=== PATIENT | female | born 1930 | race Caucasian/White ===

== ENCOUNTER → 2016-06-29 | Outpatient (CLI) | payer MEDICARE ==
[2016-06-29 13:09] LABS: Blood Urea Nitrogen 17 mg/dL (7-17); Non-African American GFR(MDRD) 51 (>60 ml/min/1.73 sqM)
--- NOTE | 2016-06-29 14:13 | CT ---
EXAMINATION TYPE: CT ChestAbdPelvis w con DATE OF EXAM: 06/29/2016 2:02 PM INDICATION: Patient complains of chest congestion and cough. Follow up study for known non hodgkins lymphoma. COMPARISON: NONE CT DLP: 427.6 mGycm CONTRAST: Performed with Oral Contrast and with IV Contrast, patient injected with 80 mL of Visipaque 320. TECHNIQUE: Axial images at 5 mm thick sections. Reconstructed images in the coronal plane. Delayed images through the kidneys. FINDINGS: CT CHEST: Portion of the thyroid visualized is normal. There is a 0.5 cm nodular density anterior right apex. This may be somewhat more prominent than the c omparison. There is a new area of pneumonitis in the periphery of the right upper lung field. Series 4 image 17. This measures approximately 0.9 cm in AP dimension. Some minimal compressive atelectasis within the dependent right midlung may be present. Moderate peribronchial thickening is within the lo wer lung ybarra. There is pneumonitis within the periphery of the left lower lobe. This is a change f rom prior study. No enlarged mediastinal or hilar adenopathy is evident. The ascending aorta diameter at the level of the main pulmonary artery is 3.1 cm. The main pulmonary artery diameter at the bifurcation is 2.[address] ABDOMEN: Liver: Normal Spleen: Normal Pancreas: Atrophic Adrenal glands: The adrenal glands are relatively normal. There is calcification within the right adr enal gland which could indicate prior hemorrhage. Gallbladder: Gallstones may be present. Kidneys: No masses are evident. No hydronephrosis is present. No cysts are present. Delayed images were obtained through the kidneys, which remain unremarkable. Aorta: Vascular calcification is within the aorta. There is an infrarenal abdominal aortic aneurysm of 4.2 cm. This terminates at the bifurcation. Inferior vena cava: Normal. CT PELVIS: No para-aortic retrocaval inguinal obturator canal or iliac chain adenopathy enlarged by C T criteria is evident. Loops of bowel within the abdomen and pelvis are normal. There are loops of bowel which are incom pletely distended or lack oral contrast limiting their evaluation. Appendix: Normal as visualized. Urinary bladder: Normal. Genitourinary structures: Uterus and adnexa appear unremarkable. Osseous structures: No suspicious lytic or sclerotic lesions. IMPRESSIONS: 1. No suspicious changes for recurrent,. 2. There are some mild changes within the lung ybarra. Follow up CT chest 6 months is recommended. 3. Abdominal aortic aneurysm currently measuring 4.2 cm maximum AP dimension
== END | disposition home or self-care (01) ==
LOC: RADCTMAIN 12:19
PROVIDERS: ATTEND Internal Medicine Hematology & Oncology
DX: C85.90 Non-Hodgkin lymphoma, unspecified, unspecified site (principal); I71.4 Abdominal aortic aneurysm, without rupture
CPT/HCPCS: 82565; 84520; 71260; 74177; 36415; Q9967

== ENCOUNTER → 2016-10-31 | Outpatient (CLI) | payer MEDICARE | END | disposition home or self-care (01) | LOC: RADCTMAIN 11:15 | PROVIDERS: ATTEND Internal Medicine Hematology & Oncology | DX: Z01.818 Encounter for other preprocedural examination (principal); C83.38 Diffuse large B-cell lymphoma, lymph nodes of multiple sites | CPT/HCPCS: 82565; 84520 ==

== ENCOUNTER → 2016-11-08 | Outpatient (CLI) | payer MEDICARE ==
--- NOTE | 2016-11-08 15:48 | CT ---
EXAMINATION TYPE: CT ChestAbdPelvis w con DATE OF EXAM: 11/08/2016 COMPARISON: Previous study dated 06/29/2016 HISTORY: Follow up for lymphoma. CT DLP: 1064 mGycm Automated exposure control for dose reduction was used. TECHNIQUE: Helical acquisition through the abdomen and pelvis was obtained without oral contrast but following the intravenous administration of 75 mL of Omnipaque 350. The data was formatted in the ax ial, coronal and sagittal projections. FINDINGS: There are emphysematous changes throughout the lungs. There is interstitial change present. This was also present previously. There is no significant axillary, internal mammary, mediastinal or hilar adenopathy. There is no pleural or pericardial fluid. The heart is mildly enlarged. There is a pacemaker in place . There is coronary artery and other vascular calcifications. There is thickening of the distal esophagus. Within the abdomen, there are gallstones within the gallbladder. The liver and spleen appear normal. There is calcification within the right adrenal gland. This likely relates to previous adrenal hemorr marilee. Both kidneys demonstrate function and appear morphologically normal. The pancreas is atrophic. There is an infrarenal abdominal aortic aneurysm. Previously this measured 4.2 cm. Today it measures 4.8 cm. There is eccentric thrombus. There is no significant retroperitoneal, iliac or inguinal adenopathy. The bladder is distended. The uterus is unremarkable. The ovaries are not visualized with certainty. There is no significant diverticular change and there is no radiographic evidence of diverticulitis. The appendix is normal. Small bowel loops are unremarkable. There is no free fluid and no free air. There is a degenerative grade 1 spondylolisthesis of L4 on L5. There is a wedge compression deformity of T9 and also T6. These were present previously. No bony destructive lesion is seen. IMPRESSION: 1. NO EVIDENCE OF RECURRENT LYMPHOMA. 2. DIFFUSE EMPHYSEMATOUS CHANGES WITHIN THE LUNGS. 3. THICKENING OF THE DISTAL ESOPHAGUS. 4. MILD CARDIOMEGALY. 5. CALCIFICATION IN THE RIGHT ADRENAL GLAND LIKELY RELATES TO OLD HEMORRHAGE. 6. INFRARENAL ABDOMINAL AORTIC ANEURYSM WHICH IS NOW ENLARGED FROM 4.2 CM TO 4.8 CM. 7. DEGENERATIVE CHANGES WELL STABLE WEDGE COMPRESSION FRACTURES WITHIN THE SPINE.
== END | disposition home or self-care (01) ==
LOC: RADCTMAIN 13:51
PROVIDERS: ATTEND Internal Medicine Hematology & Oncology
DX: C83.38 Diffuse large B-cell lymphoma, lymph nodes of multiple sites (principal); J43.9 Emphysema, unspecified; I51.7 Cardiomegaly; I71.4 Abdominal aortic aneurysm, without rupture; K22.8 Other specified diseases of esophagus; E27.9 Disorder of adrenal gland, unspecified
CPT/HCPCS: 82565; 84520; 71260; 74177; 36415; Q9967

== ENCOUNTER 2016-11-18 14:46 | Emergency (ER) | payer MEDICARE ==
[2016-11-18 14:54] VITALS: RESP 17
--- NOTE | 2016-11-18 15:13 | ED ---
Fall HPI - General Chief Complaint: Fall Stated Complaint: RT WRIST INJURY FROM FALL Time Seen by Provider: 11/18/16 14:58 Source: patient Mode of arrival: EMS - History of Present Illness Initial Comments: Patient is a right-handed 86-year-old female presenting to the emergency department via EMS with chief complaint of fall and right wrist injury. Onset of injury at 2:30 PM this afternoon. Patient states she was at home when the phone rang and she went to stand up when she think her right leg might have given out and she fell on the floor bracing herself with her right hand. Patient denies loss of consciousness. Patient is currently complaining of right wrist pain rated 5 out of 10, described as sharp, exacerbated with movement, relieved with rest. Patient denies previous trauma or surgery to right upper extremity. Patient denies numbness or tingling. Patient denies any other symptoms. MD Complaint: fall Fall From: standing When Fall Occurred: just prior to arrival Fall Witnessed: no Place Fall Occurred: home Loss of Consciousness: none Prolonged Down Time?: no Symptoms Prior to Fall: none Location - Extremities: Right: Forearm (Right wrist) Quality: other (Just hurts) Context: tripped/slipped Associated Symptoms: denies - Related Data Home Medications Medication Instructions Recorded Confirmed Digoxin [Lanoxin] 125 mcg PO DAILY 10/08/14 11/18/16 Levothyroxine Sodium [Synthroid] 25 mcg PO DAILY 10/08/14 11/18/16 [place]-3 Acid Ethyl Esters [Lovaza] 1 gm PO HS 10/08/14 11/18/16 Simvastatin [Zocor] 20 mg PO HS 10/08/14 11/18/16 Multivitamins, Thera [Multivitamin 1 tab PO DAILY 12/31/14 11/18/16 (formulary)] Warfarin [Coumadin] 2.5 mg PO TUTHSA 01/19/15 11/18/16 Furosemide [Lasix] 10 mg PO Q48H 11/18/16 11/18/16 Metoprolol Tartrate [Lopressor] 12.5 mg PO BID 11/18/16 11/18/16 Potassium Chloride ER [K-Dur 10] 10 meq PO DAILY 11/18/16 11/18/16 Warfarin [Coumadin] 5 mg PO SUMOWEFR 11/18/16 11/18/16 predniSONE 5 mg PO Q48H 11/18/16 11/18/16 sitaGLIPtin [Januvia] 50 mg PO DAILY 11/18/16 11/18/16 Allergies Allergy/AdvReac Type Severity Reaction Status Date / Time No Known Allergies Allergy Verified 11/18/16 15:57 Review of Systems ROS Statement: Those systems with pertinent positive or pertinent negative responses have been documented in the HPI. ROS Other: All systems not noted in ROS Statement are negative. Past Medical History Past Medical History: Atrial Fibrillation, Cancer, COPD, CVA/TIA, Diabetes Mellitus, Hyperlipidemia, Hypertension, Thyroid Disorder Additional Past Medical History / Comment(s): non hodgkins lymphoma-family told it is aggressive type is to start chemo 11/18/[address] Viramontes. Patient had lymph node biopsy at [facility] 10/27/14 outpatient, went home, had stroke 10/28/14, had TPA at [facility], then a mid cerebral thrombectomy 10/28/14 at [facility], went home 2014 HAS [facility]NA/PT FOR AWHILE.. 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, cyst (polynidal) removed Past Anesthesia/Blood Transfusion Reactions: No Reported Reaction Type of Cardiac Device: Permanent Pacemaker Device Placement Date:: 01/2010 Past Psychological History: Anxiety Smoking Status: Former smoker Past Alcohol Use History: Rare Past Drug Use History: None Reported - Past Family History Father Family Medical History: Cancer Additional Family Medical History / Comment(s): bowel Mother Family Medical History: Myocardial Infarction ([place]) Additional Family Medical History / Comment(s): at the age of 54 of a heart attack General Exam Limitations: no limitations General appearance: alert, in no apparent distress Head exam: Present: atraumatic, normocephalic, normal inspection Eye exam: Present: normal appearance. Absent: PERRL, scleral icterus, conjunctival injection, periorbital swelling, periorbital tenderness ENT exam: Present: normal exam, mucous membranes moist, normal external ear exam Neck exam: Present: normal inspection, full ROM. Absent: tenderness, lymphadenopathy Respiratory exam: Present: normal lung sounds bilaterally. Absent: respiratory distress, wheezes, rales, rhonchi, stridor Cardiovascular Exam: Present: regular rate, normal rhythm, normal heart sounds. Absent: systolic murmur GI/Abdominal exam: Present: soft, normal bowel sounds. Absent: tenderness Right Shoulder Exam: Present: normal inspection, full ROM. Absent: tenderness, swelling Upper Arm exam: Present: normal inspection, full ROM. Absent: tenderness, swelling Elbow exam: Present: normal inspection, full ROM. Absent: tenderness, swelling Forearm Wrist exam: Present: tenderness (Tenderness and swelling to radial aspect of right anterior wrist.), swelling Hand Wrist exam: Present: normal inspection, full ROM. Absent: tenderness, swelling Neuro motor exam: Present: wrist extension intact, thumb opposition intact, thumb IP flexion intact, thumb adduction intact, fingers 2-5 abduction intact Neurosensory exam: Present: radial nerve intact, ulnar nerve intact, median nerve intact Vascular: Present: normal capillary refill, radial pulse, brachial pulse, ulnar pulse. Absent: vascular compromise Back exam: Present: normal inspection, full ROM. Absent: tenderness, CVA tenderness (R), CVA tenderness (L), paraspinal tenderness, vertebral tenderness Neurological exam: Present: alert, other (No focal deficits noted) Psychiatric exam: Present: normal affect, normal mood Skin exam: Present: warm, dry, intact, normal color Course Vital Signs 11/18/16 11/18/16 14:49 17:05 Temperature 97.7 F 97.4 F L Pulse Rate 91 87 Respiratory 17 17 Rate Blood Pressure 181/89 157/89 O2 Sat by Pulse 95 Oximetry Medical Decision Making - Medical Decision Making Comminuted fracture the distal radius metaphysis with some posterior angulation. No significant displacement. Impacted intra-articular fracture with displacement distal radius. Chip fracture ulnar styloid. Patient placed in a sugar tong splint. Patient instructed to follow-up with orthopedic service. Daughter at bedside and in agreement. Discharge instructions and return parameters reviewed. - Radiology Data Radiology results: report reviewed X-ray right wrist: Comminuted fracture the distal radius metaphysis with some posterior angulation. No significant displacement. X-ray right forearm: Impacted intra-articular fracture with displacement distal radius. Chip fracture ulnar styloid. Disposition Clinical Impression: Wrist fracture, closed Disposition: HOME SELF-CARE Condition: Good Instructions: Wrist Fracture in Adults (ED), Fall Prevention for Older Adults ( ED), Splint Care (ED) Additional Instructions: Avoid activity that causes pain Ice 20 minutes 4 times a day usually for 2-3 days Davian wrap to provide support and limit swelling Keep elevated as much as possible 24-48 hours. Continue tylenol for pain. Return to the emergency department with symptoms of increased swelling, pain, numbness, tingling, or hand feeling cold to touch. Follow-up with primary service and orthopedic service as directed. Referrals: Martin Richards MD [Primary Care Provider] - 1-2 days [facility] [Provider Group] - 1-2 days Time of Disposition: 16:46
--- NOTE | 2016-11-18 15:41 | XR ---
EXAMINATION TYPE: XR forearm RT DATE OF EXAM: 11/18/2016 COMPARISON: NONE HISTORY: Pain Two views of the forearm demonstrate pain comminuted intra-articular fracture distal radius with disp lacement. Ulnar styloid chip fracture also suspected. Mild diffuse osteopenia. There is soft tissue edema. IMPRESSION: 1. Impacted intra-articular fracture with displacement distal radius 2. Chip fracture ulnar styloid
--- NOTE | 2016-11-18 15:42 | XR ---
EXAMINATION TYPE: XR wrist complete RT , 3 VIEWS DATE OF EXAM ORDERED: 11/18/2016 HISTORY: Pain. COMPARISON: None. FINDINGS: There is a comminuted fracture the distal radius with approximately 30 degrees of posterio r angulation. There is no significant displacement. IMPRESSION: COMMINUTED FRACTURE THE DISTAL RADIAL METAPHYSIS WITH SOME POSTERIOR ANGULATION. CODE A: INITIAL ASSESSMENT FOR CLOSED FRACTURE.
[2016-11-18 17:06] VITALS: BP 157/89; PULSE 87; TEMP 97.4
== END 2016-11-18 17:05 | disposition home or self-care (01) ==
LOC: EC 14:46
DX: S52.591A Other fractures of lower end of right radius, initial encounter for closed fracture (principal); S52.611A Displaced fracture of right ulna styloid process, initial encounter for closed fracture; E78.5 Hyperlipidemia, unspecified; I10 Essential (primary) hypertension; I48.91 Unspecified atrial fibrillation; E11.9 Type 2 diabetes mellitus without complications; E07.9 Disorder of thyroid, unspecified; Z87.891 Personal history of nicotine dependence; Z79.01 Long term (current) use of anticoagulants; Z79.52 Long term (current) use of systemic steroids; Z79.84 Long term (current) use of oral hypoglycemic drugs; Z79.899 Other long term (current) drug therapy; Z86.73 Personal history of transient ischemic attack (TIA), and cerebral infarction without residual deficits; W18.09XA Striking against other object with subsequent fall, initial encounter; Y92.009 Unspecified place in unspecified non-institutional (private) residence as the place of occurrence of the external cause; Y93.89 Activity, other specified
CPT/HCPCS: 29105; 99283

== ENCOUNTER 2016-12-05 06:50 | Day surgery (SDC) | payer MEDICARE ==
[2016-12-01 12:20] VITALS: BMI 21.6
[~2016-12-05 06:50] MED LIST: LACTATED RINGERS 1,000 ML IV SCH; LIDOCAINE 1% 20 ML VIAL (10MG/ML) FOR IV START INTRADERMA PRN
[2016-12-05 07:16] VITALS: TEMP 97
[2016-12-05 07:42] LABS: Glucose,Whole Blood 135 mg/dL (75-99)
[2016-12-05] MEDS ORDERED: PROPOFOL 10 MG/ML 20 ML VIAL IV ONE (07:53)
--- NOTE | 2016-12-05 08:08 | P.GSHP ---
History of Present Illness H&P Date: 12/05/16 Chief Complaint: GERD Is a 78-year-old female referred Dr. Martin Anderson. Patient rents today for EGD. She's had issues with GERD. Sent CT scan shows evidence of esophageal thickening. 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 , FRACTURE OF RIGHT WRIST , ANEMIA History of Any Multi-Drug Resistant Organisms: None Reported Past Surgical History: Pacemaker Additional Past Surgical History / Comment(s): partial thyroidectomy, rt axillary biopsy-surgical site at right axillae cataract, cyst (polynidal) removed, mid cerebrral thrombectomy- at [facility] Past Anesthesia/Blood Transfusion Reactions: No Reported Reaction Type of Cardiac Device: Permanent Pacemaker Device Placement Date:: 01/2010 Smoking Status: Former smoker - Past Family History Father Family Medical History: Cancer Additional Family Medical History / Comment(s): bowel Mother Family Medical History: Myocardial Infarction ([place]) Additional Family Medical History / Comment(s): at the age of 54 of a heart attack Medications and Allergies Home Medications Medication Instructions Recorded Confirmed Type Digoxin [Lanoxin] 125 mcg PO DAILY 10/08/14 12/05/16 History Levothyroxine Sodium [Synthroid] 25 mcg PO DAILY 10/08/14 12/05/16 History [place]-3 Acid Ethyl Esters [Lovaza] 1 gm PO HS 10/08/14 12/05/16 History Simvastatin [Zocor] 20 mg PO HS 10/08/14 12/05/16 History Multivitamins, Thera [Multivitamin 1 tab PO DAILY 12/31/14 12/05/16 History (formulary)] Warfarin [Coumadin] 2.5 mg PO TUTHSA 01/19/15 12/05/16 History Furosemide [Lasix] 10 mg PO Q48H 11/18/16 12/05/16 History Metoprolol Tartrate [Lopressor] 12.5 mg PO BID 11/18/16 12/05/16 History Potassium Chloride ER [K-Dur 10] 10 meq PO DAILY 11/18/16 12/05/16 History Warfarin [Coumadin] 5 mg PO SUMOWEFR 11/18/16 12/05/16 History predniSONE 5 mg PO Q48H 11/18/16 12/05/16 History sitaGLIPtin [Januvia] 50 mg PO DAILY 11/18/16 12/05/16 History Allergies Allergy/AdvReac Type Severity Reaction Status Date / Time No Known Allergies Allergy Verified 11/18/16 15:57 Surgical - Exam Vital Signs Temp Pulse Resp BP Pulse Ox 97.0 F L 81 14 140/78 97 12/05/16 07:15 12/05/16 07:15 12/05/16 07:15 12/05/16 07:15 12/05/16 07:15 - General well developed, no distress - Eyes PERRL - ENT normal pinna - Neck no masses - Respiratory normal expansion - Cardiovascular Rhythm: regular - Abdomen Abdomen: soft, non tender Results - Labs Abnormal Lab Results - Last 24 Hours (Table) 12/05/16 Range/Units 07:39 POC Glucose (mg/dL) 135 H (75-99) mg/dL Assessment and Plan Plan: GERD. We'll perform EGD.
--- NOTE | 2016-12-05 08:14 | P.OP ---
Date of Procedure: 12/05/16 Preoperative Diagnosis: GERD Postoperative Diagnosis: Antral gastritis Moderate size hiatal hernia Esophagitis No evidence of esophageal tumor Procedure(s) Performed: EGD Implants: Anesthesia: MAC Surgeon: Clay Rivera Pathology: other (Antrum, esophagus) Condition: stable Disposition: PACU Indications for Procedure: Operative Findings: Description of Procedure: Patient's placed on the endoscopy table in the lateral position. She received IV sedation. The gastroscope placed oropharynx passed in the esophagus and stomach. Scope was then placed through the pylorus. The first and second portion of the duodenum appeared normal. Scope was then brought back the antrum and this appeared mildly inflamed a biopsies performed. Scope was unretroflexed and remainder stomach appeared normal. The GE junction was at 38 cm. There was a moderate size hiatal hernia. The distal esophagus appeared inflamed and a biopsies performed. The proximal esophagus appeared normal. The scope was withdrawn for patient.
[2016-12-05 08:23] VITALS: RESP 16
[2016-12-05 08:38] LABS: Glucose,Whole Blood 129 mg/dL (75-99)
[2016-12-05 08:40] VITALS: BP 132/71; PULSE 72
[2016-12-05 08:59] LABS: INR 1.7 (<1.2); Prothrombin Time 16.8 sec (9.0-12.0)
== END 2016-12-05 09:29 | disposition home or self-care (01) ==
LOC: ORWHC2ENDO 06:50
PROVIDERS: ATTEND Surgery
DX: K21.0 Gastro-esophageal reflux disease with esophagitis (principal); K29.50 Unspecified chronic gastritis without bleeding; K44.9 Diaphragmatic hernia without obstruction or gangrene; C83.38 Diffuse large B-cell lymphoma, lymph nodes of multiple sites; E11.9 Type 2 diabetes mellitus without complications; I10 Essential (primary) hypertension; E78.2 Mixed hyperlipidemia; I48.91 Unspecified atrial fibrillation; I49.9 Cardiac arrhythmia, unspecified; J44.9 Chronic obstructive pulmonary disease, unspecified; M19.90 Unspecified osteoarthritis, unspecified site; E07.9 Disorder of thyroid, unspecified; Z95.0 Presence of cardiac pacemaker; Z86.73 Personal history of transient ischemic attack (TIA), and cerebral infarction without residual deficits; Z79.01 Long term (current) use of anticoagulants; Z79.52 Long term (current) use of systemic steroids; Z79.899 Other long term (current) drug therapy; Z79.84 Long term (current) use of oral hypoglycemic drugs; Z87.891 Personal history of nicotine dependence
CPT/HCPCS: 88305; 85610; 88342; 43239; J2704

== ENCOUNTER 2016-12-23 14:57 | Emergency (ER) | payer MEDICARE ==
[2016-12-23] MEDS ORDERED: SODIUM CHLORIDE 0.9% 500 ML IV ONE (15:10)
[2016-12-23] MEDS ORDERED: ASPIRIN 81 MG CHEW PO STA (15:24)
--- NOTE | 2016-12-23 15:39 | ED ---
Back Pain HPI - General Chief Complaint: Back Pain/Injury Stated Complaint: Back Pain Source: patient, family, EMS Limitations: no limitations - History of Present Illness Initial Comments: Patient is an 86-year-old female with a history of hypertension, and non-Hodgkin 's lymphoma who presents with a chief complaint of back pain. Patient states the pain started abruptly this morning. She says that it is her entire back. She cannot characterize her pain currently. Patient cannot identify any aggravating or alleviating factors. Timing has been constant. Patient recently had an EGD for a lower esophageal stricture on Monday. On initial evaluation patient does not appear to be in any distress. Vital signs are stable. MD Complaint: back pain Similar Symptoms Previously: No Place: home Radiation: abdomen Quality: other (Patient is unable to specify) Consistency: constant Improves With: none Worsens With: none Context: other (At rest) Associated Symptoms: abdominal pain - Related Data Home Medications Medication Instructions Recorded Confirmed Digoxin [Lanoxin] 125 mcg PO DAILY 10/08/14 12/23/16 Levothyroxine Sodium [Synthroid] 25 mcg PO DAILY 10/08/14 12/23/16 [place]-3 Acid Ethyl Esters [Lovaza] 1 gm PO HS 10/08/14 12/23/16 Simvastatin [Zocor] 20 mg PO HS 10/08/14 12/23/16 Multivitamins, Thera [Multivitamin 1 tab PO DAILY 12/31/14 12/23/16 (formulary)] Warfarin [Coumadin] 2.5 mg PO TUTHSA@1800 01/19/15 12/23/16 Furosemide [Lasix] 10 mg PO DAILY 11/18/16 12/23/16 Metoprolol Tartrate [Lopressor] 12.5 mg PO BID 11/18/16 12/23/16 Potassium Chloride ER [K-Dur 10] 10 meq PO DAILY 11/18/16 12/23/16 Warfarin [Coumadin] 5 mg PO SUMOWEFR@1800 11/18/16 12/23/16 predniSONE 5 mg PO Q48H 11/18/16 12/23/16 sitaGLIPtin [Januvia] 50 mg PO DAILY 11/18/16 12/23/16 Omeprazole 20 mg PO DAILY 12/23/16 12/23/16 Previous Rx's Medication Instructions Recorded Naproxen [EC-Naprosyn] 375 mg PO TID #20 tab 12/23/16 Nitrofurantoin Monohyd/M-Cryst 100 mg PO Q12HR #14 cap 12/23/16 [Macrobid] Allergies Allergy/AdvReac Type Severity Reaction Status Date / Time No Known Allergies Allergy Verified 12/23/16 15:34 Review of Systems ROS Statement: Those systems with pertinent positive or pertinent negative responses have been documented in the HPI. ROS Other: All systems not noted in ROS Statement are negative. Constitutional: Denies: fever, chills Eyes: Denies: vision change ENT: Denies: ear pain, throat pain Respiratory: Denies: cough, dyspnea Cardiovascular: Denies: chest pain, palpitations Endocrine: Denies: fatigue Gastrointestinal: Reports: abdominal pain. Denies: nausea, vomiting Genitourinary: Denies: dysuria Skin: Denies: rash Neurological: Denies: headache 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 , FRACTURE OF RIGHT WRIST , ANEMIA History of Any Multi-Drug Resistant Organisms: None Reported Past Surgical History: Pacemaker Additional Past Surgical History / Comment(s): partial thyroidectomy, rt axillary biopsy-surgical site at right axillae cataract, cyst (polynidal) removed, mid cerebrral thrombectomy- at [facility] Past Anesthesia/Blood Transfusion Reactions: No Reported Reaction Type of Cardiac Device: Permanent Pacemaker Device Placement Date:: 01/2010 Past Psychological History: Anxiety Smoking Status: Former smoker - Past Family History Father Family Medical History: Cancer Additional Family Medical History / Comment(s): bowel Mother Family Medical History: Myocardial Infarction ([place]) Additional Family Medical History / Comment(s): at the age of 54 of a heart attack General Exam Limitations: no limitations General appearance: alert, in no apparent distress Head exam: Present: atraumatic, normocephalic Eye exam: Present: normal appearance, PERRL ENT exam: Present: normal exam, normal oropharynx, mucous membranes moist Neck exam: Present: normal inspection. Absent: tenderness Respiratory exam: Present: normal lung sounds bilaterally. Absent: respiratory distress Cardiovascular Exam: Present: regular rate, normal rhythm, normal heart sounds GI/Abdominal exam: Present: soft, tenderness (Patient has tenderness in the lower abdomen specifically suprapubically) Rectal exam: Present: deferred Extremities exam: Present: pedal edema Back exam: Present: normal inspection. Absent: tenderness, CVA tenderness (R) Neurological exam: Present: alert, oriented X3. Absent: altered Psychiatric exam: Present: normal affect, normal mood Skin exam: Present: warm, dry, intact Course Vital Signs 12/23/16 12/23/16 12/23/16 15:16 18:04 19:20 Temperature 97.7 F 98.6 F 97.9 F Pulse Rate 76 64 62 Respiratory 16 18 18 Rate Blood Pressure 141/86 147/79 153/71 O2 Sat by Pulse 98 97 98 Oximetry Medical Decision Making - Medical Decision Making 3:33 PM Patient presents with a chief complaint of back pain. History and physical exam is most consistent with muscular skeletal back pain, gallbladder, or pancreatitis pathology. An EKG was performed at [address] depressions in 23 and aVF. There is questionable ST elevation in aVR. Comparison EKG is from 2015, and is different. I spoke with Dr. Chi, EKGs will be faxed to him , currently pending call back with cardiology interpretation. 4:00 PM I spoke with Dr. Chi again regarding patient's EKG. This time he is not concerned for STEMI. He states that this finding may be due to patient's digoxin. He states there is no need for a stress test or further workup if troponins are negative. Lab evaluation of this patient shows evidence of urinary tract infection, culture was sent. Labs otherwise show an elevated alkaline phosphatase at 131. This is consistent with previous values however is in CAT scan shows a new finding of gallstones. We'll send patient for ultrasound of the abdomen for evaluation of the gallbladder and liver. 6:10 PM Ultrasound of the liver and gallbladder show no evidence of stones, ordered I' ll duct dilatation. Second troponin is negative. This time, patient is stable for discharge and follow-up with primary care. All questions were answered. Patient was given instructions on signs and symptoms that should prompt return visit to the emergency department. - Lab Data Result diagrams: 12/23/16 15:40 12/23/16 15:40 Lab Results 12/23/16 12/23/16 12/23/16 Range/Units 15:40 15:40 15:40 WBC 7.7 (3.8-10.6) k/uL RBC 3.35 L (3.80-5.40) m/uL Hgb 11.6 (11.4-16.0) gm/dL Hct 34.1 (34.0-46.0) % MCV 101.9 H (80.0-100.0) fL MCH 34.5 (25.0-35.0) pg MCHC 33.9 (31.0-37.0) g/dL RDW 15.0 (11.5-15.5) % Plt Count 202 (150-450) k/uL Neutrophils % 58 % Lymphocytes % 27 % Monocytes % 7 % Eosinophils % 3 % Basophils % 1 % Neutrophils # 4.4 (1.3-7.7) k/uL Lymphocytes # 2.1 (1.0-4.8) k/uL Monocytes # 0.6 (0-1.0) k/uL Eosinophils # 0.3 (0-0.7) k/uL Basophils # 0.0 (0-0.2) k/uL Macrocytosis Slight Sodium 144 (137-145) mmol/L Potassium 4.7 (3.5-5.1) mmol/L Chloride 108 H (98-107) mmol/L Carbon Dioxide 24 (22-30) mmol/L Anion Gap 12 mmol/L BUN 15 (7-17) mg/dL Creatinine 1.00 (0.52-1.04) mg/dL Est GFR (MDRD) Af Amer >60 (>60 ml/min/1.73 sqM) Est GFR (MDRD) Non-Af 52 (>60 ml/min/1.73 sqM) Glucose 119 H (74-99) mg/dL Calcium 9.0 (8.4-10.2) mg/dL Total Bilirubin 0.6 (0.2-1.3) mg/dL AST 20 (14-36) U/L ALT 29 (9-52) U/L Alkaline Phosphatase 131 H (38-126) U/L Troponin I <0.012 (0.000-0.034) ng/mL Total Protein 6.8 (6.3-8.2) g/dL Albumin 4.0 (3.5-5.0) g/dL Lipase 181 (23-300) U/L Urine Color Urine Appearance (Clear) Urine pH (5.0-8.0) Ur Specific [place] (1.001-1.035) Urine Protein (Negative) Urine Glucose (UA) (Negative) Urine Ketones (Negative) Urine Blood (Negative) Urine Nitrite (Negative) Urine Bilirubin (Negative) Urine Urobilinogen (<2.0) mg/dL Ur Leukocyte Esterase (Negative) Urine RBC (0-5) /hpf Urine WBC (0-5) /hpf Ur Squamous Epith Cells (0-4) /hpf Urine Bacteria (None) /hpf Urine Mucus (None) /hpf 12/23/16 12/23/16 Range/Units 15:50 19:12 WBC (3.8-10.6) k/uL RBC (3.80-5.40) m/uL Hgb (11.4-16.0) gm/dL Hct (34.0-46.0) % MCV (80.0-100.0) fL MCH (25.0-35.0) pg MCHC (31.0-37.0) g/dL RDW (11.5-15.5) % Plt Count (150-450) k/uL Neutrophils % % Lymphocytes % % Monocytes % % Eosinophils % % Basophils % % Neutrophils # (1.3-7.7) k/uL Lymphocytes # (1.0-4.8) k/uL Monocytes # (0-1.0) k/uL Eosinophils # (0-0.7) k/uL Basophils # (0-0.2) k/uL Macrocytosis Sodium (137-145) mmol/L Potassium (3.5-5.1) mmol/L Chloride (98-107) mmol/L Carbon Dioxide (22-30) mmol/L Anion Gap mmol/L BUN (7-17) mg/dL Creatinine (0.52-1.04) mg/dL Est GFR (MDRD) Af Amer (>60 ml/min/1.73 sqM) Est GFR (MDRD) Non-Af (>60 ml/min/1.73 sqM) Glucose (74-99) mg/dL Calcium (8.4-10.2) mg/dL Total Bilirubin (0.2-1.3) mg/dL AST (14-36) U/L ALT (9-52) U/L Alkaline Phosphatase (38-126) U/L Troponin I <0.012 (0.000-0.034) ng/mL Total Protein (6.3-8.2) g/dL Albumin (3.5-5.0) g/dL Lipase (23-300) U/L Urine Color Light Yellow Urine Appearance Clear (Clear) Urine pH 7.0 (5.0-8.0) Ur Specific [place] 1.007 (1.001-1.035) Urine Protein Negative (Negative) Urine Glucose (UA) Negative (Negative) Urine Ketones Negative (Negative) Urine Blood Negative (Negative) Urine Nitrite Negative (Negative) Urine Bilirubin Negative (Negative) Urine Urobilinogen <2.0 (<2.0) mg/dL Ur Leukocyte Esterase Moderate H (Negative) Urine RBC <1 (0-5) /hpf Urine WBC 9 H (0-5) /hpf Ur Squamous Epith Cells 1 (0-4) /hpf Urine Bacteria Rare H (None) /hpf Urine Mucus Rare H (None) /hpf Disposition Clinical Impression: Back pain Disposition: HOME SELF-CARE Condition: Good Instructions: Back Pain (ED) Prescriptions: Naproxen [EC-Naprosyn] 375 mg PO TID #20 tab Nitrofurantoin Monohyd/M-Cryst [Macrobid] 100 mg PO Q12HR #14 cap Referrals: Martin Richards MD [Primary Care Provider] - 1-2 days
[2016-12-23 15:50] LABS: Basophils % (A) 1 %; CH 33.6; CHCM 33.1; Eosinophils # (A) 0.3 k/uL (0-0.7); Eosinophils % (A) 3 %; HCT 34.1 % (34.0-46.0); HDW 3.06; HGB 11.6 gm/dL (11.4-16.0); Luc # (Auto) 0.32; Luc % (Auto) 4; Lymphocytes # (A) 2.1 k/uL (1.0-4.8); Lymphocytes % (A) 27 %; MCH 34.5 pg (25.0-35.0); MCHC 33.9 g/dL (31.0-37.0); MCV 101.9 fL (80.0-100.0); Macrocytosis Slight; Mean Platelet Volume 7.6; Monocytes # (A) 0.6 k/uL (0-1.0); Monocytes % (A) 7 %; Neutrophils # (A) 4.4 k/uL (1.3-7.7); Neutrophils % (A) 58 %; RBC 3.35 m/uL (3.80-5.40); WBC 7.7 k/uL (3.8-10.6); WBC (Perox) 7.89
[2016-12-23 15:58] LABS: ALT 29 U/L (9-52); AST 20 U/L (14-36); Alkaline Phosphatase 131 U/L (38-126); Anion Gap 12 mmol/L; Blood Urea Nitrogen 15 mg/dL (7-17); Carbon Dioxide 24 mmol/L (22-30); Chloride 108 mmol/L (98-107); Glucose 119 mg/dL (74-99); Non-African American GFR(MDRD) 52 (>60 ml/min/1.73 sqM); Potassium 4.7 mmol/L (3.5-5.1); Sodium 144 mmol/L (137-145); Total Bilirubin 0.6 mg/dL (0.2-1.3); Total Protein 6.8 g/dL (6.3-8.2)
[2016-12-23 16:00] LABS: Appearance,Urine Clear (Clear); Bacteria,Urine Rare /hpf; Bilirubin,Urine Negative (Negative); Glucose,Urine (UA) Negative (Negative); Ketones,Urine Negative (Negative); Leukocyte Esterase,Urine Moderate (Negative); Mucus,Urine Rare /hpf; Nitrite,Urine Negative (Negative); Particle Count 833; Protein,Urine Negative (Negative); RBC,Urine <1 /hpf (0-5); Specific Gravity,Urine 1.007 (1.001-1.035); Squamous Epithelial Cell,Urine 1 /hpf (0-4); UA Billing (MACRO vs. MICRO) MICRO; Urobilinogen,Urine <2.0 mg/dL (<2.0); WBC,Urine 9 /hpf (0-5)
--- NOTE | 2016-12-23 17:31 | XR ---
EXAMINATION TYPE: XR thoracic spine 2V DATE OF EXAM: 12/23/2016 COMPARISON: NONE HISTORY: Back pain TECHNIQUE: 4 views FINDINGS: There is osteopenia. There is some thoracic kyphotic curvature with 50% anterior wedging of T6 vertebra. This is probably old and not changed compared to chest x-ray on 01/22/2015. There is no paraspinal mass. Posterior elements appear intact. IMPRESSION: T6 compression fractures probably old. Osteopenia. There is also slight wedging of T8 and T9 that is unchanged.
--- NOTE | 2016-12-23 17:32 | XR ---
EXAMINATION TYPE: XR lumbar spine 2 or 3V DATE OF EXAM: 12/23/2016 COMPARISON: NONE HISTORY: Back pain TECHNIQUE: 3 views FINDINGS: There is 5 mm anterior subluxation of L4 in relation L5. There is osteopenia. Posterior yevgeniy ments are intact. Abdominal aorta is atheromatous. Sacroiliac joints are intact. Abdominal aortic ane urysm is noted. IMPRESSION: Degenerative first degree L4-5 spondylolisthesis. Osteopenia. No compression fracture. Th ere is probably no change compared to CT scan on 11/08/2016. Abdominal aortic aneurysm noted.
--- NOTE | 2016-12-23 17:53 | US ---
EXAMINATION TYPE: US abdomen limited DATE OF EXAM: 12/23/2016 COMPARISON: CT CLINICAL HISTORY: Pain. back pain EXAM MEASUREMENTS: Liver Length: 12.2 cm Gallbladder Wall: 0.1 cm CBD: 0.4 cm Right Kidney: 9.2 x 3.1 x 4.1 cm unable to prove gallstones as was seen on CT Pancreas: visualized portion wnl Liver: wnl Gallbladder: No stones seen Evidence for sonographic Ramirez's sign: No CBD: wnl Right Kidney: No hydronephrosis or masses seen IMPRESSION: No gallstones or dilated ducts. Right kidney shows no hydronephrosis.
[2016-12-23 20:30] VITALS: BP 189/83; PULSE 73; RESP 16; TEMP 97.6
== END 2016-12-23 20:30 | disposition home or self-care (01) ==
LOC: EC 14:57
DX: M54.9 Dorsalgia, unspecified (principal); R10.819 Abdominal tenderness, unspecified site; I48.91 Unspecified atrial fibrillation; E11.9 Type 2 diabetes mellitus without complications; K21.9 Gastro-esophageal reflux disease without esophagitis; I10 Essential (primary) hypertension; M19.90 Unspecified osteoarthritis, unspecified site; E07.9 Disorder of thyroid, unspecified; E78.5 Hyperlipidemia, unspecified; Z85.72 Personal history of non-Hodgkin lymphomas; Z87.891 Personal history of nicotine dependence; Z86.73 Personal history of transient ischemic attack (TIA), and cerebral infarction without residual deficits; Z79.84 Long term (current) use of oral hypoglycemic drugs; Z79.01 Long term (current) use of anticoagulants; Z79.52 Long term (current) use of systemic steroids; Z79.899 Other long term (current) drug therapy
CPT/HCPCS: 36415; 72070; 72100; 76705; 80053; 81001; 83690; 84484; 85025; 87086; 93005; 96360; 96361; 99285

== ENCOUNTER 2016-12-26 22:45 | Emergency (ER) | payer MEDICARE ==
[2016-12-26 23:00] VITALS: RESP 18
--- NOTE | 2016-12-26 23:50 | ED ---
General Adult HPI - General Chief complaint: Back Pain/Injury Stated complaint: Back pain Time Seen by Provider: 12/26/16 23:32 Source: patient, family, RN notes reviewed, old records reviewed Mode of arrival: EMS Limitations: no limitations - History of Present Illness Initial comments: Patient is a pleasant 86-year-old female presenting to the emergency department back pain. Patient was in the emergency department a few days ago with similar problems. Daughter further evaluate the back today and was concern for possible rash. Patient has a difficult time identifying where her back discomfort is. Patient may have some back problems however does not normally complain about back problems. No fevers. No weakness. No known recent injury. - Related Data Home Medications Medication Instructions Recorded Confirmed Digoxin [Lanoxin] 125 mcg PO DAILY 10/08/14 12/26/16 Levothyroxine Sodium [Synthroid] 25 mcg PO DAILY 10/08/14 12/26/16 [place]-3 Acid Ethyl Esters [Lovaza] 1 gm PO HS 10/08/14 12/26/16 Simvastatin [Zocor] 20 mg PO HS 10/08/14 12/26/16 Multivitamins, Thera [Multivitamin 1 tab PO DAILY 12/31/14 12/26/16 (formulary)] Warfarin [Coumadin] 2.5 mg PO TUTHSA@1800 01/19/15 12/26/16 Furosemide [Lasix] 10 mg PO DAILY 11/18/16 12/26/16 Metoprolol Tartrate [Lopressor] 12.5 mg PO BID 11/18/16 12/26/16 Potassium Chloride ER [K-Dur 10] 10 meq PO DAILY 11/18/16 12/26/16 Warfarin [Coumadin] 5 mg PO SUMOWEFR@1800 11/18/16 12/26/16 predniSONE 5 mg PO Q48H 11/18/16 12/26/16 sitaGLIPtin [Januvia] 50 mg PO DAILY 11/18/16 12/26/16 Omeprazole 20 mg PO DAILY 12/23/16 12/26/16 Previous Rx's Medication Instructions Recorded Naproxen [EC-Naprosyn] 375 mg PO TID #20 tab 12/23/16 Nitrofurantoin Monohyd/M-Cryst 100 mg PO Q12HR #14 cap 12/23/16 [Macrobid] traMADol HCl [Ultram] 50 mg PO Q6H PRN #14 tab 12/27/16 Allergies Allergy/AdvReac Type Severity Reaction Status Date / Time No Known Allergies Allergy Verified 12/26/16 23:34 Review of Systems ROS Statement: Those systems with pertinent positive or pertinent negative responses have been documented in the HPI. ROS Other: All systems not noted in ROS Statement are negative. Constitutional: Denies: fever Eyes: Denies: eye pain ENT: Denies: ear pain Respiratory: Denies: cough Cardiovascular: Denies: chest pain Endocrine: Denies: fatigue Gastrointestinal: Denies: abdominal pain Genitourinary: Denies: dysuria Musculoskeletal: Reports: back pain Skin: Reports: rash Neurological: Denies: weakness 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 , FRACTURE OF RIGHT WRIST , ANEMIA History of Any Multi-Drug Resistant Organisms: None Reported Past Surgical History: Pacemaker Additional Past Surgical History / Comment(s): partial thyroidectomy, rt axillary biopsy-surgical site at right axillae cataract, cyst (polynidal) removed, mid cerebrral thrombectomy- at [facility] Past Anesthesia/Blood Transfusion Reactions: No Reported Reaction Type of Cardiac Device: Permanent Pacemaker Device Placement Date:: 01/2010 Past Psychological History: Anxiety Smoking Status: Former smoker Past Alcohol Use History: None Reported Past Drug Use History: None Reported - Past Family History Father Family Medical History: Cancer Additional Family Medical History / Comment(s): bowel Mother Family Medical History: Myocardial Infarction ([place]) Additional Family Medical History / Comment(s): at the age of 54 of a heart attack General Exam Limitations: no limitations General appearance: alert, in no apparent distress Head exam: Present: atraumatic Eye exam: Present: normal appearance, PERRL ENT exam: Present: normal oropharynx Neck exam: Present: normal inspection Respiratory exam: Present: normal lung sounds bilaterally Cardiovascular Exam: Present: regular rate, normal rhythm Expanded Peripheral pulses: 2+: Radial (R), Radial (L), Dorsalis Pedis (R), Dorsalis Pedis (L) GI/Abdominal exam: Present: soft. Absent: distended, tenderness, guarding, rebound, rigid Extremities exam: Present: normal inspection Back exam: Present: tenderness (Mild tenderness right lower posterior ribs), vertebral tenderness (Patient does have mild tenderness to the lumbar and lower thoracic spine) Neurological exam: Present: alert Psychiatric exam: Present: normal affect, normal mood Skin exam: Present: rash (Right lower posterior ribs with minimal mildly erythematous blotchy rash that appears somewhat ecchymotic) Course Vital Signs 12/26/16 12/27/16 22:53 00:27 Temperature 98.2 F Pulse Rate 93 85 Respiratory 18 18 Rate Blood Pressure 193/91 162/94 O2 Sat by Pulse 97 95 Oximetry - Reevaluation(s) Reevaluation #1: 12/26/16 23:50 Rash is not able to be identified as shingles at this time. Patient and daughter are advised to keep an eye on this and have further evaluation if rash or change. Rash is not tender to light touch. Medical Decision Making - Medical Decision Making Patient reexamined resting comfortably in bed. Daughter states they are aware of aorta problems and are unlikely to pursue surgical treatment for this. They have been evaluated previously. Also updated on concern for possible seventh rib fracture. There are advised to follow-up with the doctor in the next day or 2 or recheck. - Radiology Data Radiology results: report reviewed (Ultrasound of the aorta does show aneurysmal dilation up to 5.2 cm), image reviewed (Chest and right rib x-rays show possible right rib fracture) Disposition Clinical Impression: Back pain Disposition: HOME SELF-CARE Condition: Stable Instructions: Acute Low Back Pain (ED), Rib Fracture (ED) Additional Instructions: Please follow-up with primary care physician in the next day or 2 for recheck. Return for difficulty in breathing, weakness, worsening symptoms or other concerns. Prescriptions: traMADol HCl [Ultram] 50 mg PO Q6H PRN #14 tab PRN Reason: Pain/Discomfort Referrals: Martin Richards MD [Primary Care Provider] - 1-2 days Time of Disposition: 01:33
[2016-12-27] MEDS ORDERED: traMADol 50 MG TAB PO STA ×2 (00:09→01:31)
--- NOTE | 2016-12-27 00:40 | US ---
EXAM: US Retroperitoneal Limited, Aorta CLINICAL HISTORY: Reason: Pain, eval aorta TECHNIQUE: Real-time ultrasound of the retroperitoneum (limited) with image documentation. COMPARISON: No relevant prior studies available. FINDINGS: Aorta: The proximal aorta measures 2.2 x 2.3 cm, which is not aneurysmally dilated. The mid aorta measures 2.9 x 3.2 cm, which is aneurysmally dilated. The distal aorta measures 4.2 x 5.2 cm, which is aneurysmally dilated. Atherosclerotic vascular calcifications along with mural thrombus is seen within the intra-abdominal aorta. Common iliac arteries: No aneurysm. IMPRESSION: Aneurysmal dilatation of the aorta, measuring up to 5.2 cm in the distal segment, as above.
--- NOTE | 2016-12-27 01:02 | XR ---
EXAM: XR Right Ribs and AP Chest, 3 or More Views CLINICAL HISTORY: Reason: Pain TECHNIQUE: Frontal and oblique views of the right ribs and frontal view of the chest. COMPARISON: 01/22/2015 FINDINGS: Lungs: Chronic interstitial lung changes are seen. No evidence of acute pulmonary pathology. Marked improvement of pulmonary edema since prior study. Pleural space: No evidence of pneumothorax. Heart: Unremarkable. No cardiomegaly. Mediastinum: Mildly prominent mediastinum, unchanged from prior study. Right lateral deviation of the trachea, similar to prior study, likely related to tortuous aorta. Bones/joints: Evaluation of the osseous structures is limited secondary to osteopenia. Within this limitation, there is a suspected minimally displaced posterior right probable seventh rib fracture, best seen on the frontal view of the chest. Degenerative changes involving both shoulders noted. Soft tissues: Surgical clips are seen in the right axillary region, as noted on prior study. Vasculature: Tortuous thoracic aorta seen. Tubes, lines and devices: Left-sided chest wall pacemaker is again seen with lead tip overlying the right ventricle. IMPRESSION: 1. Suspected minimally displaced posterior right probable seventh rib fracture, best seen on the frontal view of the chest. Clinical correlation recommended. 2. Other findings, as described in detail above.
[2016-12-27 01:49] VITALS: BP 134/81; PULSE 65; TEMP 97.1
== END 2016-12-27 01:45 | disposition home or self-care (01) ==
LOC: EC 22:45
DX: I71.4 Abdominal aortic aneurysm, without rupture (principal); I74.09 Other arterial embolism and thrombosis of abdominal aorta; R21 Rash and other nonspecific skin eruption; I48.91 Unspecified atrial fibrillation; E78.5 Hyperlipidemia, unspecified; I10 Essential (primary) hypertension; E11.9 Type 2 diabetes mellitus without complications; K21.9 Gastro-esophageal reflux disease without esophagitis; M19.90 Unspecified osteoarthritis, unspecified site; E07.9 Disorder of thyroid, unspecified; Z87.891 Personal history of nicotine dependence; Z79.01 Long term (current) use of anticoagulants; Z79.52 Long term (current) use of systemic steroids; Z79.899 Other long term (current) drug therapy; Z86.73 Personal history of transient ischemic attack (TIA), and cerebral infarction without residual deficits; Z82.49 Family history of ischemic heart disease and other diseases of the circulatory system
CPT/HCPCS: 93005; 93979; 99285

== ENCOUNTER 2016-12-29 03:12 | Emergency (ER) | payer MEDICARE ==
[2016-12-29 03:19] VITALS: RESP 18; TEMP 98.7
--- NOTE | 2016-12-29 03:28 | ED ---
Back Pain HPI - General Source: patient, EMS, RN notes reviewed Mode of arrival: EMS Limitations: no limitations <Janusz Long - Last Filed: 12/29/16 03:45> <Stanley Macedo - Last Filed: 12/29/16 05:08> - General Chief Complaint: Back Pain/Injury Stated Complaint: Back Pain Time Seen by Provider: 12/29/16 03:15 - History of Present Illness Initial Comments: This an 86-year-old female presents emergency department via EMS chief complaint left low back pain. Patient states that this started after she fell a few weeks ago. Patient does have a right wrist fracture is currently casted for this. She states she's been here a few times for this back pain states that sometimes she is cannot tolerate it. She states she does not like to take pain medications and states she took 2 weeks Tylenol at home with some relief. Patient did have an episode of nausea vomiting today. She denies any chest pain or shortness of breath. She states the pain is in the lower rib region in the back on the left side. She denies any rashes. Patient had no fever no chills she denies any dysuria no hematuria. She states she was treated for a urinary tract infection. Patient denies any lower extremity weakness, saddle anesthesias or lower extremity paresthesias. Denies any bowel bladder incontinence or retention. (Janusz Long) - Related Data Home Medications Medication Instructions Recorded Confirmed Digoxin [Lanoxin] 125 mcg PO DAILY 10/08/14 12/29/16 Levothyroxine Sodium [Synthroid] 25 mcg PO DAILY 10/08/14 12/29/16 [place]-3 Acid Ethyl Esters [Lovaza] 1 gm PO HS 10/08/14 12/29/16 Simvastatin [Zocor] 20 mg PO HS 10/08/14 12/29/16 Multivitamins, Thera [Multivitamin 1 tab PO DAILY 12/31/14 12/29/16 (formulary)] Warfarin [Coumadin] 2.5 mg PO TUTHSA@1800 01/19/15 12/29/16 Furosemide [Lasix] 10 mg PO DAILY 11/18/16 12/29/16 Metoprolol Tartrate [Lopressor] 12.5 mg PO BID 11/18/16 12/29/16 Potassium Chloride ER [K-Dur 10] 10 meq PO DAILY 11/18/16 12/29/16 Warfarin [Coumadin] 5 mg PO SUMOWEFR@1800 11/18/16 12/29/16 predniSONE 5 mg PO Q48H 11/18/16 12/29/16 sitaGLIPtin [Januvia] 50 mg PO DAILY 11/18/16 12/29/16 Omeprazole 20 mg PO DAILY 12/23/16 12/29/16 Previous Rx's Medication Instructions Recorded Naproxen [EC-Naprosyn] 375 mg PO TID #20 tab 12/23/16 Nitrofurantoin Monohyd/M-Cryst 100 mg PO Q12HR #14 cap 12/23/16 [Macrobid] traMADol HCl [Ultram] 50 mg PO Q6H PRN #14 tab 12/27/16 Allergies Allergy/AdvReac Type Severity Reaction Status Date / Time No Known Allergies Allergy Verified 12/26/16 23:34 Review of Systems ROS Other: All systems not noted in ROS Statement are negative. <Janusz Long - Last Filed: 12/29/16 03:45> ROS Other: All systems not noted in ROS Statement are negative. <Stanley Macedo - Last Filed: 12/29/16 05:08> ROS Statement: Those systems with pertinent positive or pertinent negative responses have been documented in the HPI. 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 , FRACTURE OF RIGHT WRIST , ANEMIA History of Any Multi-Drug Resistant Organisms: None Reported Past Surgical History: Pacemaker Additional Past Surgical History / Comment(s): partial thyroidectomy, rt axillary biopsy-surgical site at right axillae cataract, cyst (polynidal) removed, mid cerebrral thrombectomy- at [facility] Past Anesthesia/Blood Transfusion Reactions: No Reported Reaction Type of Cardiac Device: Permanent Pacemaker Device Placement Date:: 01/2010 Past Psychological History: Anxiety Smoking Status: Former smoker Past Alcohol Use History: None Reported Past Drug Use History: None Reported - Past Family History Father Family Medical History: Cancer Additional Family Medical History / Comment(s): bowel Mother Family Medical History: Myocardial Infarction ([place]) Additional Family Medical History / Comment(s): at the age of 54 of a heart attack <MercedesJanusz Sharp - Last Filed: 12/29/16 03:45> General Exam General appearance: alert, in no apparent distress Head exam: Present: atraumatic, normocephalic, normal inspection Eye exam: Present: normal appearance, PERRL, EOMI. Absent: scleral icterus, conjunctival injection, periorbital swelling Neck exam: Present: normal inspection, full ROM. Absent: tenderness, meningismus, lymphadenopathy Respiratory exam: Present: normal lung sounds bilaterally, chest wall tenderness (Moderate left lower posterior ribs #7 and #8), other (No rashes noted over the chest anterior or posterior). Absent: respiratory distress, wheezes, rales, rhonchi, stridor Cardiovascular Exam: Present: irregular rhythm, normal heart sounds. Absent: regular rate, systolic murmur, diastolic murmur, rubs, gallop, clicks GI/Abdominal exam: Present: soft, normal bowel sounds. Absent: distended, tenderness, guarding, rebound, rigid Neurological exam: Present: alert, oriented X3, CN II-XII intact Skin exam: Present: warm, dry, intact, normal color. Absent: rash <MercedesJanusz Aron - Last Filed: 12/29/16 03:45> Medical Decision Making <Janusz Long - Last Filed: 12/29/16 03:45> - Lab Data Result diagrams: 12/29/16 03:47 12/29/16 03:47 <Stanley Macedo - Last Filed: 12/29/16 05:08> - Lab Data Lab Results 12/29/16 12/29/16 12/29/16 Range/Units 03:30 03:47 03:47 WBC 11.3 H (3.8-10.6) k/uL RBC 3.48 L (3.80-5.40) m/uL Hgb 11.9 (11.4-16.0) gm/dL Hct 36.2 (34.0-46.0) % MCV 103.8 H (80.0-100.0) fL MCH 34.1 (25.0-35.0) pg MCHC 32.8 (31.0-37.0) g/dL RDW 15.3 (11.5-15.5) % Plt Count 176 (150-450) k/uL Neutrophils % 72 % Lymphocytes % 16 % Monocytes % 6 % Eosinophils % 3 % Basophils % 1 % Neutrophils # 8.2 H (1.3-7.7) k/uL Lymphocytes # 1.8 (1.0-4.8) k/uL Monocytes # 0.7 (0-1.0) k/uL Eosinophils # 0.3 (0-0.7) k/uL Basophils # 0.1 (0-0.2) k/uL Macrocytosis Slight Sodium 139 (137-145) mmol/L Potassium 4.4 (3.5-5.1) mmol/L Chloride 105 (98-107) mmol/L Carbon Dioxide 23 (22-30) mmol/L Anion Gap 11 mmol/L BUN 14 (7-17) mg/dL Creatinine 0.91 (0.52-1.04) mg/dL Est GFR (MDRD) Af Amer >60 (>60 ml/min/1.73 sqM) Est GFR (MDRD) Non-Af 58 (>60 ml/min/1.73 sqM) Glucose 181 H (74-99) mg/dL Calcium 8.8 (8.4-10.2) mg/dL Total Bilirubin 0.7 (0.2-1.3) mg/dL AST 28 (14-36) U/L ALT 28 (9-52) U/L Alkaline Phosphatase 126 (38-126) U/L Troponin I (0.000-0.034) ng/mL Total Protein 6.6 (6.3-8.2) g/dL Albumin 3.9 (3.5-5.0) g/dL Urine Color Yellow Urine Appearance Clear (Clear) Urine pH 6.0 (5.0-8.0) Ur Specific [place] 1.014 (1.001-1.035) Urine Protein Trace H (Negative) Urine Glucose (UA) Negative (Negative) Urine Ketones Trace H (Negative) Urine Blood Negative (Negative) Urine Nitrite Negative (Negative) Urine Bilirubin Negative (Negative) Urine Urobilinogen <2.0 (<2.0) mg/dL Ur Leukocyte Esterase Moderate H (Negative) Urine RBC <1 (0-5) /hpf Urine WBC 8 H (0-5) /hpf Ur Squamous Epith Cells 1 (0-4) /hpf Hyaline Casts 7 H (0-2) /lpf Urine Mucus Rare H (None) /hpf 12/29/16 Range/Units 03:47 WBC (3.8-10.6) k/uL RBC (3.80-5.40) m/uL Hgb (11.4-16.0) gm/dL Hct (34.0-46.0) % MCV (80.0-100.0) fL MCH (25.0-35.0) pg MCHC (31.0-37.0) g/dL RDW (11.5-15.5) % Plt Count (150-450) k/uL Neutrophils % % Lymphocytes % % Monocytes % % Eosinophils % % Basophils % % Neutrophils # (1.3-7.7) k/uL Lymphocytes # (1.0-4.8) k/uL Monocytes # (0-1.0) k/uL Eosinophils # (0-0.7) k/uL Basophils # (0-0.2) k/uL Macrocytosis Sodium (137-145) mmol/L Potassium (3.5-5.1) mmol/L Chloride (98-107) mmol/L Carbon Dioxide (22-30) mmol/L Anion Gap mmol/L BUN (7-17) mg/dL Creatinine (0.52-1.04) mg/dL Est GFR (MDRD) Af Amer (>60 ml/min/1.73 sqM) Est GFR (MDRD) Non-Af (>60 ml/min/1.73 sqM) Glucose (74-99) mg/dL Calcium (8.4-10.2) mg/dL Total Bilirubin (0.2-1.3) mg/dL AST (14-36) U/L ALT (9-52) U/L Alkaline Phosphatase (38-126) U/L Troponin I <0.012 (0.000-0.034) ng/mL Total Protein (6.3-8.2) g/dL Albumin (3.5-5.0) g/dL Urine Color Urine Appearance (Clear) Urine pH (5.0-8.0) Ur Specific [place] (1.001-1.035) Urine Protein (Negative) Urine Glucose (UA) (Negative) Urine Ketones (Negative) Urine Blood (Negative) Urine Nitrite (Negative) Urine Bilirubin (Negative) Urine Urobilinogen (<2.0) mg/dL Ur Leukocyte Esterase (Negative) Urine RBC (0-5) /hpf Urine WBC (0-5) /hpf Ur Squamous Epith Cells (0-4) /hpf Hyaline Casts (0-2) /lpf Urine Mucus (None) /hpf 12/29/16 03:45 EKG performed at 3:40 atrial fibrillation with rate of 79 QRS duration 84 QT/ QTC 366/412 (Janusz Long) Disposition <Janusz Long - Last Filed: 12/29/16 03:45> <Stanley Macedo - Last Filed: 12/29/16 05:08> Clinical Impression: Rib pain Disposition: HOME SELF-CARE Condition: Fair Instructions: Rib Fracture (ED) Referrals: Martin Richards MD [Primary Care Provider] - 1-2 days
[2016-12-29 03:54] LABS: Appearance,Urine Clear (Clear); Bilirubin,Urine Negative (Negative); Glucose,Urine (UA) Negative (Negative); Ketones,Urine Trace (Negative); Leukocyte Esterase,Urine Moderate (Negative); Mucus,Urine Rare /hpf; Nitrite,Urine Negative (Negative); Particle Count 1562; Protein,Urine Trace (Negative); RBC,Urine <1 /hpf (0-5); Specific Gravity,Urine 1.014 (1.001-1.035); Squamous Epithelial Cell,Urine 1 /hpf (0-4); UA Billing (MACRO vs. MICRO) MICRO; Urobilinogen,Urine <2.0 mg/dL (<2.0); WBC,Urine 8 /hpf (0-5)
[2016-12-29 03:55] LABS: Basophils # (A) 0.1 k/uL (0-0.2); Basophils % (A) 1 %; CH 34.7; CHCM 33.6; Eosinophils # (A) 0.3 k/uL (0-0.7); Eosinophils % (A) 3 %; HCT 36.2 % (34.0-46.0); HDW 2.96; HGB 11.9 gm/dL (11.4-16.0); Luc # (Auto) 0.31; Luc % (Auto) 3; Lymphocytes # (A) 1.8 k/uL (1.0-4.8); Lymphocytes % (A) 16 %; MCH 34.1 pg (25.0-35.0); MCHC 32.8 g/dL (31.0-37.0); MCV 103.8 fL (80.0-100.0); Macrocytosis Slight; Mean Platelet Volume 8.3; Monocytes # (A) 0.7 k/uL (0-1.0); Monocytes % (A) 6 %; Neutrophils # (A) 8.2 k/uL (1.3-7.7); Neutrophils % (A) 72 %; RBC 3.48 m/uL (3.80-5.40); RDW 15.3 % (11.5-15.5); WBC 11.3 k/uL (3.8-10.6); WBC (Perox) 11.46
[2016-12-29 04:15] LABS: ALT 28 U/L (9-52); AST 28 U/L (14-36); Alkaline Phosphatase 126 U/L (38-126); Anion Gap 11 mmol/L; Blood Urea Nitrogen 14 mg/dL (7-17); Calcium 8.8 mg/dL (8.4-10.2); Carbon Dioxide 23 mmol/L (22-30); Chloride 105 mmol/L (98-107); Glucose 181 mg/dL (74-99); Non-African American GFR(MDRD) 58 (>60 ml/min/1.73 sqM); Potassium 4.4 mmol/L (3.5-5.1); Sodium 139 mmol/L (137-145); Total Bilirubin 0.7 mg/dL (0.2-1.3); Total Protein 6.6 g/dL (6.3-8.2)
[2016-12-29 05:10] VITALS: BP 99/62; PULSE 80
== END 2016-12-29 05:28 | disposition home or self-care (01) ==
LOC: EC 03:12
DX: R07.81 Pleurodynia (principal); M54.5 Low back pain; I48.91 Unspecified atrial fibrillation; E11.9 Type 2 diabetes mellitus without complications; K21.9 Gastro-esophageal reflux disease without esophagitis; E78.5 Hyperlipidemia, unspecified; I10 Essential (primary) hypertension; M19.90 Unspecified osteoarthritis, unspecified site; E07.9 Disorder of thyroid, unspecified; F41.9 Anxiety disorder, unspecified; Z85.72 Personal history of non-Hodgkin lymphomas; Z86.73 Personal history of transient ischemic attack (TIA), and cerebral infarction without residual deficits; Z87.891 Personal history of nicotine dependence; Z79.52 Long term (current) use of systemic steroids; Z79.01 Long term (current) use of anticoagulants; Z79.899 Other long term (current) drug therapy; Z95.0 Presence of cardiac pacemaker
CPT/HCPCS: 36415; 80053; 81001; 84484; 85025; 93005; 99284

== ENCOUNTER 2017-01-01 23:17 | Emergency (ER) | payer MEDICARE ==
--- NOTE | 2017-01-02 00:41 | ED ---
General Adult HPI - General Chief complaint: Back Pain/Injury Stated complaint: Back Pain Time Seen by Provider: 01/01/17 23:47 Source: patient, EMS, RN notes reviewed, old records reviewed Mode of arrival: EMS Limitations: no limitations - History of Present Illness Initial comments: Chief complaint and history of present illness this is an 78-year-old female here with a daughter. The patient's Emergent several times recently because of persistent pain from a fractured rib that she suffered approximate one month ago. The patient also had a right wrist fracture. She is on tramadol at home. Patient and daughter reports that the tramadol seems to work for 3 or 4 hours. Daughter states she's only receiving the pain medication to sometimes 3 times a day. At this time the patient's comfortable she received her tramadol approximately 90 minutes ago. - Related Data Home Medications Medication Instructions Recorded Confirmed Digoxin [Lanoxin] 125 mcg PO DAILY 10/08/14 12/29/16 Levothyroxine Sodium [Synthroid] 25 mcg PO DAILY 10/08/14 12/29/16 [place]-3 Acid Ethyl Esters [Lovaza] 1 gm PO HS 10/08/14 12/29/16 Simvastatin [Zocor] 20 mg PO HS 10/08/14 12/29/16 Multivitamins, Thera [Multivitamin 1 tab PO DAILY 12/31/14 12/29/16 (formulary)] Warfarin [Coumadin] 2.5 mg PO TUTHSA@1800 01/19/15 12/29/16 Furosemide [Lasix] 10 mg PO DAILY 11/18/16 12/29/16 Metoprolol Tartrate [Lopressor] 12.5 mg PO BID 11/18/16 12/29/16 Potassium Chloride ER [K-Dur 10] 10 meq PO DAILY 11/18/16 12/29/16 Warfarin [Coumadin] 5 mg PO SUMOWEFR@1800 11/18/16 12/29/16 predniSONE 5 mg PO Q48H 11/18/16 12/29/16 sitaGLIPtin [Januvia] 50 mg PO DAILY 11/18/16 12/29/16 Omeprazole 20 mg PO DAILY 12/23/16 12/29/16 Previous Rx's Medication Instructions Recorded Naproxen [EC-Naprosyn] 375 mg PO TID #20 tab 12/23/16 Nitrofurantoin Monohyd/M-Cryst 100 mg PO Q12HR #14 cap 12/23/16 [Macrobid] traMADol HCl [Ultram] 50 mg PO Q6H PRN #14 tab 12/27/16 traMADol HCl [Ultram] 50 mg PO Q6H PRN #20 tab 01/02/17 Allergies Allergy/AdvReac Type Severity Reaction Status Date / Time No Known Allergies Allergy Verified 12/26/16 23:34 Review of Systems ROS Statement: Those systems with pertinent positive or pertinent negative responses have been documented in the HPI. review of systems. The patient is not complaining of headache or visual acuity changes she comes complains of pain to her right lateral rib cage when she takes deep breath or coughs. She does splint the area with her hand x-rayed diagnosed a rib fracture several days ago. No bruising noted. No other medical problems. All systems reviewed.Past medical problems A. fib on Coumadin. COPD, TIA, diabetes, GERD, hyperlipidemia hypertension and arthritis thyroid past history of non-Hodgkin's lymphoma. Patient surgeries include partial thyroidectomy and pacemaker. Patient also has a 5 cm aortic aneurysm which daughter states because of her age is inoperable. Matter this time the patient appears comfortable. ROS Other: All systems not noted in ROS Statement are negative. 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 , FRACTURE OF RIGHT WRIST , ANEMIA History of Any Multi-Drug Resistant Organisms: None Reported Past Surgical History: Pacemaker Additional Past Surgical History / Comment(s): partial thyroidectomy, rt axillary biopsy-surgical site at right axillae cataract, cyst (polynidal) removed, mid cerebrral thrombectomy- at [facility] Past Anesthesia/Blood Transfusion Reactions: No Reported Reaction Type of Cardiac Device: Permanent Pacemaker Device Placement Date:: 01/2010 Past Psychological History: Anxiety Smoking Status: Former smoker Past Alcohol Use History: None Reported Past Drug Use History: None Reported - Past Family History Father Family Medical History: Cancer Additional Family Medical History / Comment(s): bowel Mother Family Medical History: Myocardial Infarction ([place]) Additional Family Medical History / Comment(s): at the age of 54 of a heart attack General Exam - General Exam Comments Initial Comments: General: The patient is awake and alert, in no distress, and does not appear acutely ill. patient had a tramadol 90 minutes ago. Daughter reports that she was crying at home with pain but has since subsided. Vital signs temperature 97.0 all 77, pulse ox 89% room air blood pressure 129/69. Patient does have history of COPD. She does not appear dyspneic. Eye: Pupils are equal, round and reactive to light, extra-ocular movements are intact ; there is normal conjunctiva bilaterally. No signs of icterus. Ears, nose, mouth and throat: There are moist mucous membranes . Neck: The neck is supple, there is no tenderness . Cardiovascular: history of A. fib. Heart rate irregular, rate 77. chest pain reproducible by taking a deep breath or twisting turning or palpation to the proximal May 6 and seventh rib on the right side laterally.no rash, shingles discussed none noted. No ecchymosis. Respiratory: Lungs are clear to auscultation, respirations are non-labored, breath sounds are equal. No wheezes, stridor, rales, or rhonchi.history of COPD but does not appear dyspneic. Gastrointestinal: Soft, non-distended, non-tender abdomen without masses or organomegaly noted. There is no rebound or guarding present. No CVA tenderness. Bowel sounds are unremarkable. Back: back pain where the patient has a rib fracture. Musculoskeletal: Normal ROM, no tenderness, There is no pedal edema. There is no calf tenderness or swelling. Sensation intact. Pulses equal bilaterally 2+. Neurological: no apparent neuro deficits. Skin: Skin is warm and dry and no rashes or lesions are noted. Limitations: no limitations Course Vital Signs 01/01/17 23:22 Temperature 97.0 F L Pulse Rate 77 Respiratory 17 Rate Blood Pressure 129/69 Medical Decision Making - Medical Decision Making Appearing today's chest x-ray of one done several days ago they're similar. The radiologist's that time was suspicious for nondisplaced fracture of the seventh rib. The plant this time for the patient to be given Tylenol in between tramadol's and the daughter was told she can give tramadol every 6 hours as this seems to be effective. Advised to follow-up with the family physician as needed or return emergency room as needed. Disposition Clinical Impression: Acute chest wall pain Disposition: HOME SELF-CARE Condition: Fair Instructions: Costochondritis (ED), Rib Fracture (ED) Additional Instructions: Give Tylenol in between doses of tramadol. He can give tramadol 1 every 6 hours. Splint the area. Follow-up with family physician. Prescriptions: traMADol HCl [Ultram] 50 mg PO Q6H PRN #20 tab PRN Reason: Pain Referrals: Martin Richards MD [Primary Care Provider] - 1-2 days Time of Disposition: 01:12
--- NOTE | 2017-01-02 01:27 | XR ---
EXAM: XR Chest, 2 Views CLINICAL HISTORY: Reason: right sided rib fracture, continued pain TECHNIQUE: Frontal and lateral views of the chest. COMPARISON: 12/27/16 FINDINGS: Lungs: Unremarkable. No consolidation. Pleural space: Unremarkable. No pneumothorax. Heart: Unremarkable. No cardiomegaly. Mediastinum: Unremarkable. Bones/joints: Previously described seventh rib fracture is not well- seen on the current exam. Other findings: Left chest pulse generator in place and appears stable. IMPRESSION: No acute findings. Previously described seventh rib fracture is not well-seen on the current exam.
[2017-01-02 01:40] VITALS: BP 116/67; PULSE 72; RESP 16; TEMP 97.9
== END 2017-01-02 01:41 | disposition home or self-care (01) ==
LOC: EC 23:17
DX: R07.89 Other chest pain (principal); I48.91 Unspecified atrial fibrillation; E11.9 Type 2 diabetes mellitus without complications; K21.9 Gastro-esophageal reflux disease without esophagitis; E78.5 Hyperlipidemia, unspecified; I10 Essential (primary) hypertension; M19.90 Unspecified osteoarthritis, unspecified site; E07.9 Disorder of thyroid, unspecified; Z87.81 Personal history of (healed) traumatic fracture; Z86.73 Personal history of transient ischemic attack (TIA), and cerebral infarction without residual deficits; Z95.0 Presence of cardiac pacemaker; Z79.01 Long term (current) use of anticoagulants; Z79.84 Long term (current) use of oral hypoglycemic drugs; Z79.899 Other long term (current) drug therapy; Z87.891 Personal history of nicotine dependence
CPT/HCPCS: 71020; 99284

== ENCOUNTER 2017-01-02 12:06 | Observation (INO) | payer MEDICARE ==
[2017-01-02] MEDS: FUROSEMIDE 10 MG TAB PO SCH (15:47)
[2017-01-02] MEDS: predniSONE 5 MG TAB PO SCH (15:47)
[2017-01-02] MEDS: traMADol 50 MG TAB PO PRN ×2 (15:51→22:11)
[2017-01-02] MEDS: SODIUM CHLORIDE 0.9% 1,000 ML IV SCH ×2 (16:21→18:34)
[2017-01-02 16:57] LABS: Partial Thromboplastin Time 37.4 sec (22.0-30.0); Prothrombin Time 57.9 sec (9.0-12.0)
[2017-01-02 17:09] LABS: Aty Lym Flag Slight; CH 34.3; CHCM 32.2; HCT 34.8 % (34.0-46.0); HDW 2.73; HGB 11.1 gm/dL (11.4-16.0); MCH 34.1 pg (25.0-35.0); MCHC 31.8 g/dL (31.0-37.0); MCV 107.3 fL (80.0-100.0); Macrocytosis Moderate; Mean Platelet Volume 8.3; RBC 3.24 m/uL (3.80-5.40); RDW 15.1 % (11.5-15.5); WBC 7.9 k/uL (3.8-10.6); WBC (Perox) 7.85
[2017-01-02 17:14] LABS: Calcium 8.8 mg/dL (8.4-10.2); Potassium 5.7 mmol/L (3.5-5.1); Total Bilirubin 0.4 mg/dL (0.2-1.3)
[2017-01-02 17:22] LABS: INR 5.7 (<1.2)
[2017-01-02] MEDS ORDERED: PHYTONADIONE ORAL 5 MG/5 ML ORAL.SYRG PO STA (17:39)
[2017-01-02 17:40] LABS: Add Differential Manual Differential
[2017-01-02 17:43] LABS: Nucleated Red Blood Cells 0 /100 WBC (0-0); Total Cells Counted 100
--- NOTE | 2017-01-02 17:57 | CT ---
EXAMINATION TYPE: CT thoracic spine wo con DATE OF EXAM: 01/02/2017 COMPARISON: Thoracic spine x-ray 12/23/2016 HISTORY: Mid back pain from fall. CT DLP: 972.70 mGycm Automated exposure control for dose reduction was used. FINDINGS: There is thoracic kyphotic curvature. There is a mild levoscoliosis. There is osteopenia. There is 40 % anterior wedging of T6 vertebra. There is similar wedging of T8. There is slight depression of the superior endplate of T9. There is no thoracic paraspinal mass. Thoracic aorta is atheromatous. [employer] ior elements are intact. IMPRESSION: MULTIPLE COMPRESSION FRACTURES. THERE IS PROGRESSION OF T8 AND T9 FRACTURES COMPARED TO RECENT THORAC IC SPINE X-RAY EXAM. T6 FRACTURE APPEARS STABLE. OSTEOPENIA.
[2017-01-02] MEDS: METOPROLOL TARTRATE 12.5 MG TAB PO SCH (21:00)
[2017-01-02] MEDS: ATORVASTATIN 10 MG TAB PO SCH (21:00)
[2017-01-02] MEDS ORDERED: NON-FORMULARY DRUG (Omega-3 Acid Ethyl Esters [Lovaza] 1 GM) PO SCH (21:00)
[2017-01-02 21:05] LABS: Hemoglobin A1C 4.7 % (4.2-6.1)
[2017-01-02 23:59] LABS: Appearance,Urine Clear (Clear); Bilirubin,Urine Negative (Negative); Glucose,Urine (UA) Negative (Negative); Ketones,Urine Negative (Negative); Leukocyte Esterase,Urine Negative (Negative); Nitrite,Urine Negative (Negative); PH, Urine 7.5 (5.0-8.0); Protein,Urine Negative (Negative); Specific Gravity,Urine 1.007 (1.001-1.035); UA Billing (MACRO vs. MICRO) CHEM; Urobilinogen,Urine <2.0 mg/dL (<2.0)
[2017-01-03] MEDS: SODIUM CHLORIDE 0.9% 1,000 ML IV SCH ×4 (04:44→20:37)
[2017-01-03] MEDS: traMADol 50 MG TAB PO PRN ×2 (05:13→11:10)
[2017-01-03 07:47] LABS: Basophils # (A) 0.1 k/uL (0-0.2); Basophils % (A) 1 %; CH 33.2; CHCM 32.3; Eosinophils # (A) 0.2 k/uL (0-0.7); Eosinophils % (A) 3 %; HCT 33.3 % (34.0-46.0); HDW 2.79; HGB 10.8 gm/dL (11.4-16.0); Luc # (Auto) 0.28; Luc % (Auto) 4; Lymphocytes # (A) 1.5 k/uL (1.0-4.8); Lymphocytes % (A) 21 %; MCH 33.4 pg (25.0-35.0); MCHC 32.3 g/dL (31.0-37.0); MCV 103.5 fL (80.0-100.0); Macrocytosis Slight; Mean Platelet Volume 7.2; Monocytes # (A) 0.5 k/uL (0-1.0); Monocytes % (A) 6 %; Neutrophils # (A) 4.9 k/uL (1.3-7.7); Neutrophils % (A) 66 %; RBC 3.22 m/uL (3.80-5.40); RDW 14.5 % (11.5-15.5); WBC 7.4 k/uL (3.8-10.6); WBC (Perox) 8.07
[2017-01-03 07:55] LABS: ALT 27 U/L (9-52); AST 17 U/L (14-36); Alkaline Phosphatase 97 U/L (38-126); Anion Gap 8 mmol/L; Blood Urea Nitrogen 15 mg/dL (7-17); Calcium 8.4 mg/dL (8.4-10.2); Carbon Dioxide 23 mmol/L (22-30); Chloride 109 mmol/L (98-107); Glucose 98 mg/dL (74-99); Non-African American GFR(MDRD) 53 (>60 ml/min/1.73 sqM); Potassium 4.4 mmol/L (3.5-5.1); Sodium 140 mmol/L (137-145); Total Bilirubin 0.7 mg/dL (0.2-1.3)
[2017-01-03 07:56] LABS: INR 1.8 (<1.2); Partial Thromboplastin Time 28.2 sec (22.0-30.0); Prothrombin Time 17.3 sec (9.0-12.0)
[2017-01-03] MEDS: LINAGLIPTIN 5 MG TABLET PO SCH (08:01)
[2017-01-03] MEDS: PANTOPRAZOLE 40 MG TABLET PO SCH (08:01)
[2017-01-03] MEDS: LEVOTHYROXINE 25 MCG TAB PO SCH (08:01)
[2017-01-03] MEDS: DIGOXIN 125 MCG TAB PO SCH (08:02)
[2017-01-03] MEDS: METOPROLOL TARTRATE 12.5 MG TAB PO SCH ×2 (08:02→20:36)
[2017-01-03] MEDS: MULTIVITAMINS, THERA 1 EACH TAB PO SCH (12:10)
--- NOTE | 2017-01-03 12:27 | P.CNOR ---
<Florencia New - Last Filed: 01/03/17 12:21> History of Present Illness - HPI Consult date: 01/03/17 History of present illness: This is a pleasant 86-year-old female who is admitted for UTI and dehydration. Orthopedics is consulted did due to back pain. Patient's family is present in the room and states the patient has been complaining of increased back pain over the last 10 days. Family states the patient has been taken to the ER several times for this matter but was always discharged home with no diagnosis. A thoracic spine CT ordered by the patient's primary care physician showed multiple compression fractures that appear to have progressed since last x-ray. Family states the patient has been up and walking and denies any numbness, weakness, tingling, change in bowel or bladder function or loss of sensation to the saddle area. Family states the patient does have intermittent numbness and tingling in the feet due to history of heart failure and diabetes. Family denies any recent fall except for in November 2016 where the patient sustained a right wrist fracture. Family states that the patient missed her follow up appointment last week for cast removal due to back pain. Review of Systems See HPI. Past Medical History Past Medical History: Atrial Fibrillation, Cancer, Heart Failure, COPD, CVA/TIA , Diabetes Mellitus, GERD/Reflux, Hyperlipidemia, Hypertension, Osteoarthritis ( OA), Pneumonia, Thyroid Disorder Additional Past Medical History / Comment(s): Non hodgkins lymphoma, CVA 10/28/14 , pleural effusion with thoracentesis, pulmonary htn, CURRENT FRACTURE OF RIGHT WRIST, ANEMIA, arthritis bilateral hands, hypothyroid, hiatal hernia, gastritis , back pain, chronic irisitis. History of Any Multi-Drug Resistant Organisms: None Reported Past Surgical History: Pacemaker Additional Past Surgical History / Comment(s): Pacemaker, thoracentesis, partial thyroidectomy, mediastinoscopy, rt axillary biopsy, bilateral cataract removal, cyst (pilonidial) removed, mid cerebral thrombectomy- at [place], EGD with bx, D&C. Past Anesthesia/Blood Transfusion Reactions: No Reported Reaction Type of Cardiac Device: Permanent Pacemaker Device Placement Date:: 01/2010 Smoking Status: Former smoker - Past Family History Father Family Medical History: Cancer Additional Family Medical History / Comment(s): bowel Mother Family Medical History: Myocardial Infarction ([place]) Additional Family Medical History / Comment(s): at the age of 54 of a heart attack Medications and Allergies Home Medications Medication Instructions Recorded Confirmed Type Digoxin [Lanoxin] 125 mcg PO DAILY 10/08/14 01/02/17 History Levothyroxine Sodium [Synthroid] 25 mcg PO DAILY 10/08/14 01/02/17 History [place]-3 Acid Ethyl Esters [Lovaza] 1 gm PO HS 10/08/14 01/02/17 History Simvastatin [Zocor] 20 mg PO HS 10/08/14 01/02/17 History Multivitamins, Thera [Multivitamin 1 tab PO DAILY 12/31/14 01/02/17 History (formulary)] Warfarin [Coumadin] 2.5 mg PO TUTHSA@1800 01/19/15 01/02/17 History Furosemide [Lasix] 10 mg PO Q48H 11/18/16 01/02/17 History Metoprolol Tartrate [Lopressor] 12.5 mg PO BID 11/18/16 01/02/17 History Potassium Chloride ER [K-Dur 10] 10 meq PO DAILY 11/18/16 01/02/17 History Warfarin [Coumadin] 5 mg PO SUMOWEFR@1800 11/18/16 01/02/17 History predniSONE 5 mg PO Q48H 11/18/16 01/02/17 History sitaGLIPtin [Januvia] 50 mg PO DAILY 11/18/16 01/02/17 History Omeprazole 20 mg PO DAILY 12/23/16 01/02/17 History Allergies Allergy/AdvReac Type Severity Reaction Status Date / Time No Known Allergies Allergy Verified 01/02/17 13:46 Physical Examination Patient is in no acute distress and is alert and oriented x3. There is tenderness to palpation over the thoracic spine. Spine with kyphosis. No palpable step off. Patient has full range of motion of bilateral lower extremities. Strength is 5/5 and sensation intact. Calves are soft and nontender. Neurovascular status is intact to bilateral lower extremities. Results A CT of the thoracic spine was done and reveiwed showing: Multiple compression fractures. There is progression of T8 and T9 fractures compared to recent thoracic spine x-ray exam. T6 fracture appears stable. Osteopenia. Report by Dr. Miranda - Labs Labs: Abnormal Lab Results - Last 24 Hours (Table) 01/02/17 01/02/17 01/02/17 Range/Units 16:21 16:21 16:21 RBC 3.24 L (3.80-5.40) m/uL Hgb 11.1 L (11.4-16.0) gm/dL Hct (34.0-46.0) % MCV 107.3 H (80.0-100.0) fL Monocytes # (Manual) 1.03 H (0-1.0) k/uL PT 57.9 H (9.0-12.0) sec INR 5.7 H* (<1.2) APTT 37.4 H (22.0-30.0) sec Potassium 5.7 H (3.5-5.1) mmol/L Chloride (98-107) mmol/L BUN 19 H (7-17) mg/dL Creatinine 1.07 H (0.52-1.04) mg/dL Glucose 121 H (74-99) mg/dL Total Protein 6.0 L (6.3-8.2) g/dL Albumin (3.5-5.0) g/dL 01/03/17 01/03/17 01/03/17 Range/Units 07:31 07:31 07:31 RBC 3.22 L (3.80-5.40) m/uL Hgb 10.8 L (11.4-16.0) gm/dL Hct 33.3 L (34.0-46.0) % MCV 103.5 H (80.0-100.0) fL Monocytes # (Manual) (0-1.0) k/uL PT 17.3 H (9.0-12.0) sec INR 1.8 H (<1.2) APTT (22.0-30.0) sec Potassium (3.5-5.1) mmol/L Chloride 109 H (98-107) mmol/L BUN (7-17) mg/dL Creatinine (0.52-1.04) mg/dL Glucose (74-99) mg/dL Total Protein 6.0 L (6.3-8.2) g/dL Albumin 3.4 L (3.5-5.0) g/dL H & H 01/02/17 01/03/17 Range/Units 16:21 07:31 Hgb 11.1 L 10.8 L (11.4-16.0) gm/dL Hct 34.8 33.3 L (34.0-46.0) % Coagulation 01/02/17 01/03/17 Range/Units 16:21 07:31 INR 5.7 H* 1.8 H (<1.2) Result Diagrams: 01/03/17 07:31 01/03/17 07:31 Assessment and Plan (1) Compression fx, thoracic spine Status: Acute Plan: #1. TLSO brace to be worn when patient is out of bed for comfort purposes. #2. Continue pain control with tramadol. #3. Patient may follow up in the office with Dr. Crooks in the next 7 days. <Quoc Crooks - Last Filed: 01/03/17 12:46> Physical Examination Osteopathic Statement: *. No significant issues noted on an osteopathic structural exam other than those noted in the History and Physical/Consult. Results - Labs Labs: Abnormal Lab Results - Last 24 Hours (Table) 01/02/17 01/02/17 01/02/17 Range/Units 16:21 16:21 16:21 RBC 3.24 L (3.80-5.40) m/uL Hgb 11.1 L (11.4-16.0) gm/dL Hct (34.0-46.0) % MCV 107.3 H (80.0-100.0) fL Monocytes # (Manual) 1.03 H (0-1.0) k/uL PT 57.9 H (9.0-12.0) sec INR 5.7 H* (<1.2) APTT 37.4 H (22.0-30.0) sec Potassium 5.7 H (3.5-5.1) mmol/L Chloride (98-107) mmol/L BUN 19 H (7-17) mg/dL Creatinine 1.07 H (0.52-1.04) mg/dL Glucose 121 H (74-99) mg/dL Total Protein 6.0 L (6.3-8.2) g/dL Albumin (3.5-5.0) g/dL 01/03/17 01/03/17 01/03/17 Range/Units 07:31 07:31 07:31 RBC 3.22 L (3.80-5.40) m/uL Hgb 10.8 L (11.4-16.0) gm/dL Hct 33.3 L (34.0-46.0) % MCV 103.5 H (80.0-100.0) fL Monocytes # (Manual) (0-1.0) k/uL PT 17.3 H (9.0-12.0) sec INR 1.8 H (<1.2) APTT (22.0-30.0) sec Potassium (3.5-5.1) mmol/L Chloride 109 H (98-107) mmol/L BUN (7-17) mg/dL Creatinine (0.52-1.04) mg/dL Glucose (74-99) mg/dL Total Protein 6.0 L (6.3-8.2) g/dL Albumin 3.4 L (3.5-5.0) g/dL H & H 01/02/17 01/03/17 Range/Units 16:21 07:31 Hgb 11.1 L 10.8 L (11.4-16.0) gm/dL Hct 34.8 33.3 L (34.0-46.0) % Coagulation 01/02/17 01/03/17 Range/Units 16:21 07:31 INR 5.7 H* 1.8 H (<1.2) Result Diagrams: 01/03/17 07:31 01/03/17 07:31 Assessment and Plan Plan: I reviewed the images and reviewed the case with our physician assistant branch manager. I'm in agreement with the plan for TLSO brace. The patient has significant kyphosis and is at. Advanced age and may be difficult for her to tolerate the brace itself. The brace would encourage better posture and could help in healing of the new fractures at T8 and T9 and help prevent progression of the fractures themselves and so it would be worthwhile for her to try to use the TLSO brace when she is up out of bed. She does not need to use a brace while she is in bed or if she has good support behind her while seating. We will see how she continues to mobilize with the brace on. From a orthopedic spine standpoint when she has her braces a be okay for her to be discharged and follow -up in 7-14 days.
--- NOTE | 2017-01-03 14:26 | P.CRDCN ---
<Ioana Osman Yg - Last Filed: 01/03/17 14:27> History of Present Illness Consult date: 01/03/17 History of present illness: This is a 86-year-old female. Past medical history significant for persistent atrial fibrillation on chronic anticoagulation, pacemaker, COPD, congestive heart failure, CVA, diabetes mellitus, hyperlipidemia, hypertension and hypothyroidism. Cardiology has been consulted for an elevated BNP and history of heart failure. Patient recently suffered a fall and fractured her right wrist, right seventh rib and multiple compression fractures. She follows with Dr. sparrow as an outpatient. She saw him in the office 12/20/2016. Her daughter was present in the room during my examination. She states her mother takes Lasix 10 mg by mouth every other day or as needed for increased lower extremity swelling. She has struggled in the past with hypotension and this is why Dr Richards changed her to every other day. Clinically she does not appear to have any signs of heart failure at this time. No EKG has been performed, we will order one to be done now. EKG on 12/29/2016 for prior ER visit shows atrial fibrillation with nonspecific ST and T-wave abnormalities. Upon admission her INR was 5.7 and she was reversed with vitamin K. Repeat this morning is 1.8. Coumadin prescribed per Dr. Ni should be 5 mg Monday, Monday, Monday, , Monday and 7.5 mg Monday and Monday. Hemoglobin 10.8, INR 1.8, potassium 4.4, B1 15, creatinine 0.99, BNP 3250. Most recent echocardiogram done November 2014 shows an ejection fraction of 60%, mild tricuspid regurg, severe pulmonary hypertension, mild mitral regurg with an RVSP of 56 mmHg. Review of Systems REVIEW OF SYSTEMS: Patient denies any chest discomfort. No shortness of breath. No diaphoresis. Denies headache, dizziness, blurred vision, double vision. No dyspnea on exertion. Patient denies any stomach discomfort. No nausea, vomiting. No hematochezia. No hematemesis. Denies any black stools or blood in his stools. No syncope. No palpitations. No cough. No recent fever or chills. No muscle weakness or numbness. Past Medical History Past Medical History: Atrial Fibrillation, Cancer, Heart Failure, COPD, CVA/TIA , Diabetes Mellitus, GERD/Reflux, Hyperlipidemia, Hypertension, Osteoarthritis ( OA), Pneumonia, Thyroid Disorder Additional Past Medical History / Comment(s): Non hodgkins lymphoma, CVA 10/28/14 , pleural effusion with thoracentesis, pulmonary htn, CURRENT FRACTURE OF RIGHT WRIST, ANEMIA, arthritis bilateral hands, hypothyroid, hiatal hernia, gastritis , back pain, chronic irisitis. History of Any Multi-Drug Resistant Organisms: None Reported Past Surgical History: Pacemaker Additional Past Surgical History / Comment(s): Pacemaker, thoracentesis, partial thyroidectomy, mediastinoscopy, rt axillary biopsy, bilateral cataract removal, cyst (pilonidial) removed, mid cerebral thrombectomy- at [place], EGD with bx, D&C. Past Anesthesia/Blood Transfusion Reactions: No Reported Reaction Type of Cardiac Device: Permanent Pacemaker Device Placement Date:: 01/2010 Smoking Status: Former smoker - Past Family History Father Family Medical History: Cancer Additional Family Medical History / Comment(s): bowel Mother Family Medical History: Myocardial Infarction ([place]) Additional Family Medical History / Comment(s): at the age of 54 of a heart attack Medications and Allergies Home Medications Medication Instructions Recorded Confirmed Type Digoxin [Lanoxin] 125 mcg PO DAILY 10/08/14 01/02/17 History Levothyroxine Sodium [Synthroid] 25 mcg PO DAILY 10/08/14 01/02/17 History [place]-3 Acid Ethyl Esters [Lovaza] 1 gm PO 10/08/14 01/02/17 History Simvastatin [Zocor] 20 mg PO 10/08/14 01/02/17 History Multivitamins, Thera [Multivitamin 1 tab PO DAILY 12/31/14 01/02/17 History (formulary)] Warfarin [Coumadin] 2.5 mg PO TUTHSA@1800 01/19/15 01/02/17 History Furosemide [Lasix] 10 mg PO Q48H 11/18/16 01/02/17 History Metoprolol Tartrate [Lopressor] 12.5 mg PO BID 11/18/16 01/02/17 History Potassium Chloride ER [K-Dur 10] 10 meq PO DAILY 11/18/16 01/02/17 History Warfarin [Coumadin] 5 mg PO SUMOWEFR@1800 11/18/16 01/02/17 History predniSONE 5 mg PO Q48H 11/18/16 01/02/17 History sitaGLIPtin [Januvia] 50 mg PO DAILY 11/18/16 01/02/17 History Omeprazole 20 mg PO DAILY 12/23/16 01/02/17 History Allergies Allergy/AdvReac Type Severity Reaction Status Date / Time No Known Allergies Allergy Verified 01/02/17 13:46 Physical Exam Vitals: Vital Signs Temp Pulse Resp BP Pulse Ox 01/03/17 07:00 97.0 F L 118 H 16 115/76 97 01/02/17 23:00 97.4 F L 84 20 123/64 95 01/02/17 20:58 79 110/68 01/02/17 15:00 97.8 F 74 16 100/64 98 Intake and Output 01/02/17 01/03/17 01/03/17 22:59 06:59 14:59 Intake Total 300 450 Balance 300 450 Intake: Oral 300 450 Other: Voiding Method Toilet Bedside Commode # Voids 2 2 1 # Bowel Movements 1 GENERAL: This is a 86-year-old occasion female in no apparent distress at the time of my examination. HEENT: Head is atraumatic, normocephalic. Sclerae anicteric. Conjunctivae are clear. Mucous membranes of the mouth are moist. Neck is supple. There is no jugular venous distention. No carotid bruit is heard. LUNGS: Clear to auscultation no wheezes, rales or rhonchi. No chest wall tenderness is noted on palpation or with deep breathing. Diminished air entry. Difficulty taking a deep breath secondary to right chest wall/rib pain. HEART: Irregular rate and rhythm with systolic ejection murmur heard at the base , no rubs or gallops. S1 and S2 heard. ABDOMEN: Soft, nontender. Bowel sounds are heard. No organomegaly noted. EXTREMITIES: Right arm hard cast in place, pulses and the other 3 extremities 2 + and strong, no evidence of peripheral edema and no calf tenderness noted. NEUROLOGIC: Patient is awake, alert and oriented x3. Results 01/03/17 07:31 01/03/17 07:31 Cardiac Enzymes 01/02/17 01/03/17 Range/Units 16:21 07:31 AST 18 17 (14-36) U/L Coagulation 01/02/17 01/03/17 Range/Units 16:21 07:31 PT 57.9 H 17.3 H (9.0-12.0) sec APTT 37.4 H 28.2 (22.0-30.0) sec CBC 01/02/17 01/03/17 Range/Units 16:21 07:31 WBC 7.9 7.4 (3.8-10.6) k/uL RBC 3.24 L 3.22 L (3.80-5.40) m/uL Hgb 11.1 L 10.8 L (11.4-16.0) gm/dL Hct 34.8 33.3 L (34.0-46.0) % Plt Count 156 171 (150-450) k/uL Comprehensive Metabolic Panel 01/02/17 01/03/17 Range/Units 16:21 07:31 Sodium 139 140 (137-145) mmol/L Potassium 5.7 H 4.4 (3.5-5.1) mmol/L Chloride 105 109 H (98-107) mmol/L Carbon Dioxide 27 23 (22-30) mmol/L BUN 19 H 15 (7-17) mg/dL Creatinine 1.07 H 0.99 (0.52-1.04) mg/dL Glucose 121 H 98 (74-99) mg/dL Calcium 8.8 8.4 (8.4-10.2) mg/dL AST 18 17 (14-36) U/L ALT 25 27 (9-52) U/L Alkaline Phosphatase 101 97 (38-126) U/L Total Protein 6.0 L 6.0 L (6.3-8.2) g/dL Albumin 3.5 3.4 L (3.5-5.0) g/dL Current Medications Generic Name Dose Route Start Last Admin Trade Name Freq PRN Reason Stop Dose Admin Atorvastatin Calcium 10 mg 01/02/17 21:00 01/02/17 21:00 Lipitor PO 10 mg HS OSMAR Administration Digoxin 125 mcg 01/03/17 09:00 01/03/17 08:02 Lanoxin PO 125 mcg DAILY OSMAR Administration Furosemide 10 mg 01/02/17 15:15 01/02/17 15:47 Lasix PO 10 mg Q48H OSMAR Administration Sodium Chloride 1,000 mls @ 100 mls/hr 01/02/17 15:15 01/03/17 12:04 Saline 0.9% IV Not Given .Q10H OSMAR Sodium Chloride 1,000 mls @ 75 mls/hr 01/02/17 17:00 01/03/17 07:24 Saline 0.9% IV Not Given .[id number] OSMAR Levothyroxine Sodium 25 mcg 01/03/17 07:30 01/03/17 08:01 Synthroid PO 25 mcg AC-BRKFST OSMAR Administration Linagliptin 5 mg 01/03/17 09:00 01/03/17 08:01 Tradjenta PO 5 mg DAILY OSMAR Administration Metoprolol Tartrate 12.5 mg 01/02/17 21:00 01/03/17 08:02 Lopressor PO 12.5 mg BID OSMAR Administration Multivitamins 1 each 01/03/17 12:00 01/03/17 12:10 Theragran PO 1 each DAILY@1200 OSMAR Administration Pantoprazole Sodium 40 mg 01/03/17 07:30 01/03/17 08:01 Protonix PO 40 mg AC-BRKFST OSMAR Administration Prednisone 5 mg 01/02/17 15:15 01/02/17 15:47 PO 5 mg Q48H OSMAR Administration Tramadol HCl 50 mg 01/02/17 15:05 01/03/17 11:10 Ultram PO 50 mg Q6H PRN Administration Pain/Discomfort Intake and Output 01/02/17 01/03/17 01/03/17 22:59 06:59 14:59 Intake Total 300 450 Balance 300 450 Intake: Oral 300 450 Other: Voiding Method Toilet Bedside Commode # Voids 2 2 1 # Bowel Movements 1 01/03/17 07:31 01/03/17 07:31 Assessment and Plan Plan: ASSESSMENT 1. Chronic persistent atrial fibrillation, on chronic anticoagulation and rate control 2. Supratherapeutic INR 3. Right rib fracture 4. For thoracic spine compression fracture 5. Essential hypertension PLAN Obtain EKG on this admission. We'll also perform an echocardiogram to assess for left ventricular systolic function. Resume Coumadin at prescribed home dosages. INR should be between 2 and 3 for optimal anticoagulation. Continue with current medication therapy. Further recommendations will be based upon clinical course. Thank you kindly for this consultation, we will continue to follow this patient. Nurse Practitioner note has been reviewed, I agree with a documented findings and plan of care. Patient was seen and examined. <Naa Brownareinier - Last Filed: 01/04/17 05:58> Physical Exam Vitals: Vital Signs Temp Pulse Resp BP Pulse Ox 01/03/17 23:00 97.0 F L 69 20 124/75 97 01/03/17 20:35 88 106/66 01/03/17 15:00 97.0 F L 67 18 90/58 95 01/03/17 07:00 97.0 F L 118 H 16 115/76 97 Intake and Output 01/03/17 01/03/17 01/04/17 14:59 22:59 06:59 Intake Total 250 Balance 250 Intake: Oral 250 Other: Voiding Method Toilet Bedside Commode # Voids 2 1 1 Results 01/03/17 07:31 01/03/17 07:31 Cardiac Enzymes 01/03/17 Range/Units 07:31 AST 17 (14-36) U/L Coagulation 01/03/17 Range/Units 07:31 PT 17.3 H (9.0-12.0) sec APTT 28.2 (22.0-30.0) sec CBC 01/03/17 Range/Units 07:31 WBC 7.4 (3.8-10.6) k/uL RBC 3.22 L (3.80-5.40) m/uL Hgb 10.8 L (11.4-16.0) gm/dL Hct 33.3 L (34.0-46.0) % Plt Count 171 (150-450) k/uL Comprehensive Metabolic Panel 01/03/17 Range/Units 07:31 Sodium 140 (137-145) mmol/L Potassium 4.4 (3.5-5.1) mmol/L Chloride 109 H (98-107) mmol/L Carbon Dioxide 23 (22-30) mmol/L BUN 15 (7-17) mg/dL Creatinine 0.99 (0.52-1.04) mg/dL Glucose 98 (74-99) mg/dL Calcium 8.4 (8.4-10.2) mg/dL AST 17 (14-36) U/L ALT 27 (9-52) U/L Alkaline Phosphatase 97 (38-126) U/L Total Protein 6.0 L (6.3-8.2) g/dL Albumin 3.4 L (3.5-5.0) g/dL Current Medications Generic Name Dose Route Start Last Admin Trade Name Freq PRN Reason Stop Dose Admin Atorvastatin Calcium 10 mg 01/02/17 21:00 01/03/17 20:36 Lipitor PO 10 mg HS OSMAR Administration Digoxin 125 mcg 01/03/17 09:00 01/03/17 08:02 Lanoxin PO 125 mcg DAILY OSMAR Administration Furosemide 10 mg 01/02/17 15:15 01/02/17 15:47 Lasix PO 10 mg Q48H OSMAR Administration Sodium Chloride 1,000 mls @ 75 mls/hr 01/02/17 17:00 01/03/17 20:37 Saline 0.9% IV 75 mls/hr .[id number] OSMAR Administration Levothyroxine Sodium 25 mcg 01/03/17 07:30 01/03/17 08:01 Synthroid PO 25 mcg AC-BRKFST OSMAR Administration Linagliptin 5 mg 01/03/17 09:00 01/03/17 08:01 Tradjenta PO 5 mg DAILY OSMAR Administration Metoprolol Tartrate 12.5 mg 01/02/17 21:00 01/03/17 20:36 Lopressor PO 12.5 mg BID OSMAR Administration Multivitamins 1 each 01/03/17 12:00 01/03/17 12:10 Theragran PO 1 each DAILY@1200 OSMAR Administration Pantoprazole Sodium 40 mg 01/03/17 07:30 01/03/17 08:01 Protonix PO 40 mg AC-BRKFST OSMAR Administration Prednisone 5 mg 01/02/17 15:15 01/02/17 15:47 PO 5 mg Q48H OSMAR Administration Tramadol HCl 50 mg 01/02/17 15:05 01/03/17 11:10 Ultram PO 50 mg Q6H PRN Administration Pain/Discomfort Intake and Output 01/03/17 01/03/17 01/04/17 14:59 22:59 06:59 Intake Total 250 Balance 250 Intake: Oral 250 Other: Voiding Method Toilet Bedside Commode # Voids 2 1 1 01/03/17 07:31 01/03/17 07:31
[2017-01-03] MEDS ORDERED: WARFARIN 5 MG TAB PO ONE (18:00)
--- NOTE | 2017-01-03 19:55 | ECHOF ---
Referral Reason:chf MEASUREMENTS -------- HEIGHT: 162.6 cm WEIGHT: 55.3 kg BP: 123/64 RVIDd: 3.0 cm (< 3.3) IVSd: 0.8 cm (0.6 - 1.1) LVIDd: 4.3 cm (3.9 - 5.3) LVPWd: 0.8 cm (0.6 - 1.1) IVSs: 1.4 cm LVIDs: 2.6 cm LVPWs: 1.1 cm LAESV Index (A-L): 40.30 ml/m Ao Diam: 3.1 cm (2.0 - 3.7) AV Cusp: 1.8 cm (1.5 - 2.6) LA Diam: 4.3 cm (2.7 - 3.8) MV E Rohith: 1.06 m/s MV DecT: 225 ms MV A Rohith: 0.34 m/s MV E/A Ratio: 3.10 RAP: 5.00 mmHg RVSP: 32.67 mmHg FINDINGS -------- Sinus rhythm. This was a technically adequate study. Overall left ventricular systolic function is normal with, an EF between 60 - 65 %. The right ventricle is normal in size and function. LA is severely dilated >40 ml/m2 The right atrium is normal in size. Aortic valve is trileaflet and is mildly thickened. There is no evidence of aortic regurgitation. There is no evidence of aortic stenosis. The mitral valve leaflets are mildly thickened. Mild mitral annular calcification present. There is trace to mild mitral regurgitation. Trace tricuspid regurgitation present. There is no evidence of pulmonary hypertension. The right ventricular systolic pressure, as measured by Doppler, is 32.67mmHg. The pulmonic valve was not well visualized. The aortic root size is normal. Normal inferior vena cava with normal inspiratory collapse consistent with estimated right atrial pressure of 5 mmHg. The pericardium is normal. There is no pericardial effusion. CONCLUSIONS -------- 1. Sinus rhythm. 2. There is no evidence of pulmonary hypertension. 3. The right ventricular systolic pressure, as measured by Doppler, is 32.67mmHg. 4. The pulmonic valve was not well visualized. 5. The aortic root size is normal. 6. There is no pericardial effusion. 7. This was a technically adequate study. 8. Overall left ventricular systolic function is normal with, an EF between 60 - 65 %. 9. LA is severely dilated >40 ml/m2 10. Aortic valve is trileaflet and is mildly thickened. 11. The mitral valve leaflets are mildly thickened. 12. Mild mitral annular calcification present. 13. There is trace to mild mitral regurgitation. 14. Trace tricuspid regurgitation present. LAST MODEL MAKER: Clark Diallo RDCS
[2017-01-03] MEDS: ATORVASTATIN 10 MG TAB PO SCH (20:36)
--- NOTE | 2017-01-04 09:00 | P.PN ---
Subjective Principal diagnosis: Multiple compression fractures thoracic spine. This is an 86-year-old female admitted with intractable back pain. She is alert but slightly confused this morning. She does not know where she is. When told that she is in the hospital she is unaware as to why she is in the hospital. She states that she does have some back pain. She is complaining of no neurologic deficits. Objective - Vital Signs Vital signs: Vital Signs Temp 98.3 F 01/04/17 07:00 Pulse 84 01/04/17 07:00 Resp 18 01/04/17 07:00 BP 109/62 01/04/17 07:00 Pulse Ox 93 L 01/04/17 07:00 Intake & Output 01/03/17 01/04/17 01/04/17 18:59 06:59 18:59 Intake Total 250 Balance 250 Intake: Oral 250 Other: Voiding Method Toilet Bedside Commode # Voids 1 1 1 - Exam This is an 86-year-old female in no acute distress. She is alert but slightly confused this morning. Exam of the thoracic and lumbar spine reveal no deformity. There is mild tenderness with palpation about the thoracic spine. Exam of lower extremities reveals full foot ankle motion without difficulty or pain. No neurologic deficits noted. - Labs CBC & Chem 7: 01/03/17 07:31 01/03/17 07:31 Labs: Microbiology - Last 24 Hours (Table) 01/02/17 23:45 Urine Culture - Preliminary Urine,Clean Catch Assessment and Plan (1) Compression fx, thoracic spine Status: Acute Plan: The clinical findings are discussed the patient and with nursing staff. We are waiting a TLSO brace. Case management is involved in obtaining the brace.
[2017-01-04 09:09] LABS: Basophils % (A) 1 %; CH 34.8; CHCM 33.2; Eosinophils # (A) 0.2 k/uL (0-0.7); Eosinophils % (A) 2 %; HCT 32.8 % (34.0-46.0); HDW 2.79; HGB 10.5 gm/dL (11.4-16.0); Luc # (Auto) 0.28; Luc % (Auto) 4; Lymphocytes % (A) 29 %; MCH 33.9 pg (25.0-35.0); MCHC 32.2 g/dL (31.0-37.0); MCV 105.4 fL (80.0-100.0); Macrocytosis Moderate; Mean Platelet Volume 8.3; Monocytes # (A) 0.5 k/uL (0-1.0); Monocytes % (A) 7 %; Neutrophils # (A) 3.9 k/uL (1.3-7.7); Neutrophils % (A) 58 %; RBC 3.11 m/uL (3.80-5.40); RDW 15.3 % (11.5-15.5); WBC 6.8 k/uL (3.8-10.6); WBC (Perox) 7.31
[2017-01-04 09:15] LABS: INR 1.2 (<1.2); Prothrombin Time 11.7 sec (9.0-12.0)
[2017-01-04] MEDS: DIGOXIN 125 MCG TAB PO SCH (09:19)
[2017-01-04] MEDS: METOPROLOL TARTRATE 12.5 MG TAB PO SCH ×2 (09:20→09:21)
[2017-01-04] MEDS: PANTOPRAZOLE 40 MG TABLET PO SCH (09:21)
[2017-01-04] MEDS: LEVOTHYROXINE 25 MCG TAB PO SCH (09:21)
[2017-01-04] MEDS: LINAGLIPTIN 5 MG TABLET PO SCH (09:21)
[2017-01-04 10:15] LABS: ALT 26 U/L (9-52); AST 17 U/L (14-36); Alkaline Phosphatase 108 U/L (38-126); Anion Gap 9 mmol/L; Blood Urea Nitrogen 11 mg/dL (7-17); Calcium 8.6 mg/dL (8.4-10.2); Carbon Dioxide 21 mmol/L (22-30); Chloride 109 mmol/L (98-107); Glucose 109 mg/dL (74-99); Non-African American GFR(MDRD) >60 (>60 ml/min/1.73 sqM); Potassium 4.1 mmol/L (3.5-5.1); Sodium 139 mmol/L (137-145); Total Protein 5.9 g/dL (6.3-8.2)
--- NOTE | 2017-01-04 12:43 | P.DS ---
Providers Date of admission: 01/02/17 13:10 Expected date of discharge: 01/04/17 Attending physician: Martin Richards Consults: 01/02/17 15:00 Consult Physician Routine Consulting Provider: Kavon Pratt Consult Reason/Comments: Patient known to him, right arm in cast Do you want consulting provider notified?: Yes 01/02/17 23:10 Consult Physician Routine Consulting Provider: Quoc Crooks Consult Reason/Comments: thoracic fractures Do you want consulting provider notified?: Yes 01/03/17 11:06 Consult Physician Routine Consulting Provider: Michaela Brown Consult Reason/Comments: hx of heart failure, elevated BNP Do you want consulting provider notified?: Yes Primary care physician: Martin Richards Hospital Course: HOSPITAL COURSE: 86-year-old female who was admitted on 01/02/2017 as a direct admit by Dr. Richards for possible UTI and dehydration. A urine sample was obtained on 01/02/2017 which was negative for urinary tract infection. Patient's creatinine was slightly elevated at 1.07 upon admission but currently is 0.8. Patient received IV hydration while in hospital. Upon admission her INR was found to be 5.7. She takes Coumadin for chronic A. fib. The patient was given vitamin K and repeat INR was 1.8. This morning her INR is 1.2. Dr. Richards recommends decreasing her previous dose of Coumadin and to follow up outpatient. No bridging of INR is necessary per Dr. Ricahrds. Per Dr Richards, discharge the patient home on 2.5mg daily. The patient had a CT of the spine which showed multiple compression fractures, progression of it T8 and T9 fracture, and a stable T6 fracture. Dr Crooks was consulted. Recommended TLSO brace to be worn and patient is out of bed for comfort and to follow-up within one week. DISCHARGE DIAGNOSIS: 1. Chronic atrial fibrillation, on anticoagulation 2. Multiple compression fractures of lumbar spine, progression of T8 and T9 fracture, stable T6 fracture 3. Essential hypertension 4. UTI-ruled out 5. Dehydration, resolved at time of discharge. The above impression and plan of care have been discussed and directed by signing physician. Joann Ford, nurse practitioner, acting as scribe for signing physician. Patient Condition at Discharge: Stable Plan - Discharge Summary New Discharge Prescriptions: New Warfarin Sodium [Coumadin] 2.5 mg PO HS #30 tablet Continue Levothyroxine Sodium [Synthroid] 25 mcg PO DAILY Digoxin [Lanoxin] 125 mcg PO DAILY Simvastatin [Zocor] 20 mg PO HS [place]-3 Acid Ethyl Esters [Lovaza] 1 gm PO HS Multivitamins, Thera [Multivitamin (formulary)] 1 tab PO DAILY sitaGLIPtin [Januvia] 50 mg PO DAILY predniSONE 5 mg PO Q48H Metoprolol Tartrate [Lopressor] 12.5 mg PO BID Furosemide [Lasix] 10 mg PO Q48H Potassium Chloride ER [K-Dur 10] 10 meq PO DAILY Omeprazole 20 mg PO DAILY traMADol HCl [Ultram] 50 mg PO Q6H PRN #14 tab PRN Reason: Pain/Discomfort Discontinued Warfarin [Coumadin] 2.5 mg PO TUTHSA@1800 Warfarin [Coumadin] 5 mg PO SUMOWEFR@1800 Discharge Medication List Digoxin [Lanoxin] 125 mcg PO DAILY 10/08/14 [History] Levothyroxine Sodium [Synthroid] 25 mcg PO DAILY 10/08/14 [History] [place]-3 Acid Ethyl Esters [Lovaza] 1 gm PO HS 10/08/14 [History] Simvastatin [Zocor] 20 mg PO HS 10/08/14 [History] Multivitamins, Thera [Multivitamin (formulary)] 1 tab PO DAILY 12/31/14 [History ] Furosemide [Lasix] 10 mg PO Q48H 11/18/16 [History] Metoprolol Tartrate [Lopressor] 12.5 mg PO BID 11/18/16 [History] Potassium Chloride ER [K-Dur 10] 10 meq PO DAILY 11/18/16 [History] predniSONE 5 mg PO Q48H 11/18/16 [History] sitaGLIPtin [Januvia] 50 mg PO DAILY 11/18/16 [History] Omeprazole 20 mg PO DAILY 12/23/16 [History] traMADol HCl [Ultram] 50 mg PO Q6H PRN #14 tab 12/27/16 [Rx] Warfarin Sodium [Coumadin] 2.5 mg PO HS #30 tablet 01/04/17 [Rx] Follow up Appointment(s)/Referral(s): Shiva Ni MD [STAFF PHYSICIAN] - 1 Week (Pt is to go to Dr. Ni's office in 1-week to have blood drawn to assess INR for coumadin dosing. ) Quoc Crooks DO [Doctor of Osteopathic Medicine] - 10 Days (Daughter to make appointments for pt. ) Martin Richards MD [Primary Care Provider] - 01/06/17 (Daughter to make appointment for pt) Ambulatory/Diagnostic Orders: Prothrombin Time INR [LAB.AMB] Time Frame: 2 Days, Location: Determined By Patient Patient Instructions/Handouts: Urinary Tract Infection in Women (DC) Activity/Diet/Wound Care/Special Instructions: TLSO brace to be worn when out of bed for comfort. Fall precautions, up with assist. Cardiac, diabetic diet. Discharge Disposition: HOME SELF-CARE
[2017-01-04] MEDS: MULTIVITAMINS, THERA 1 EACH TAB PO SCH (12:49)
--- NOTE | 2017-01-04 13:01 | P.PN ---
Subjective We are seeing this patient today as a follow-up from an initial consultation. An echocardiogram was ordered and performed yesterday and shows preserved left ventricular systolic function with an ejection fraction of 60-65%. Left atrium is severely dilated, aortic valve is trileaflet and mildly thickened, mitral valve is mildly thickened, mild mitral calcification present, trace to mild mitral regurgitation, trace tricuspid regurgitation, there is no evidence of pulmonary hypertension with RVSP of 32.67 mmHg. Her Coumadin was resumed yesterday at 5 mg. INR this morning 1.2. She remains in an irregular rhythm at this time. Objective - Vital Signs Vital signs: Vital Signs Temp 98.3 F 01/04/17 07:00 Pulse 84 01/04/17 07:00 Resp 18 01/04/17 07:00 BP 109/62 01/04/17 07:00 Pulse Ox 93 L 01/04/17 07:00 Intake & Output 01/03/17 01/04/17 01/04/17 18:59 06:59 18:59 Intake Total 250 Balance 250 Intake: Oral 250 Other: Voiding Method Toilet Bedside Commode # Voids 1 1 1 - Exam GENERAL: Well-appearing, well-nourished and in no acute distress. NECK: Supple without JVD or thyromegaly. LUNGS: Breath sounds clear to auscultation bilaterally. Respiration equal and unlabored. No wheezes, rales or rhonchi. HEART: Irregular rate and rhythm with systolic ejection murmur at the base, no rubs or gallops. S1 and S2 heard. EXTREMITIES: Normal range of motion, no edema. No clubbing or cyanosis. Peripheral pulses intact and strong. Cannot assess right radial pulse due to hard cast in place. - Labs CBC & Chem 7: 01/04/17 08:12 01/04/17 08:12 Labs: Abnormal Lab Results - Last 24 Hours (Table) 01/04/17 01/04/17 01/04/17 Range/Units 08:12 08:12 08:12 RBC 3.11 L (3.80-5.40) m/uL Hgb 10.5 L (11.4-16.0) gm/dL Hct 32.8 L (34.0-46.0) % MCV 105.4 H (80.0-100.0) fL INR 1.2 H (<1.2) Chloride 109 H (98-107) mmol/L Carbon Dioxide 21 L (22-30) mmol/L Glucose 109 H (74-99) mg/dL Total Protein 5.9 L (6.3-8.2) g/dL Albumin 3.4 L (3.5-5.0) g/dL Microbiology - Last 24 Hours (Table) 01/02/17 23:45 Urine Culture - Preliminary Urine,Clean Catch Assessment and Plan Plan: ASSESSMENT 1. Chronic persistent atrial fibrillation, on chronic anticoagulation and rate control 2. Supratherapeutic INR 3. Right rib fracture 4. For thoracic spine compression fracture 5. Essential hypertension PLAN Recommend continuing the patient on Coumadin 5 mg daily 3 days then 2.5 mg daily thereafter. She should have coagulation studies performed in one week and follow-up with Dr. Ni. Nurse Practitioner note has been reviewed, I agree with a documented findings and plan of care. Patient was seen and examined.
[2017-01-04] MEDS: SODIUM CHLORIDE 0.9% 1,000 ML IV SCH (13:40)
[2017-01-04 13:56] VITALS: BMI 20.9
[2017-01-04 15:10] VITALS: BP 108/65; PULSE 80; RESP 16; TEMP 97.3
[2017-01-04] MEDS: predniSONE 5 MG TAB PO SCH (16:03)
[2017-01-04] MEDS: FUROSEMIDE 10 MG TAB PO SCH (16:03)
--- NOTE | 2017-01-04 17:04 | HP ---
CHIEF COMPLAINT: [id number]-old white female admitted with severe intractable mid back pain and shortness of breath. HISTORY OF PRESENT ILLNESS: This 86-year-old white female is admitted with dehydration, inability to eat or drink due to severe pain and nausea and dehydration and significant back pain. Patient was admitted to the hospital due to the significant pain. CT scan shows acute thoracic compression fraction. She does have elevated BNP for congestive heart failure causing her worsening shortness of breath and elevated INR of over 6, for which Kayexalate has been ordered, and elevated BNP for congestive heart failure. She has generalized poor appetite, inability to eat or drink, and severe dehydration and malnutrition. REVIEW OF SYSTEMS: See HPI. Fourteen-point review of systems otherwise negative. PAST MEDICAL HISTORY: 1. Atrial fibrillation. 2. Cancer. 3. Heart failure. 4. COPD. 5. CVA, TIA. 6. Diabetes mellitus. 7. GERD. 8. Dyslipidemia. 9. Hypertension. 10. Osteoarthritis. 11. Pneumonia. 12. Hypothyroidism. 13. Non-Hodgkin's lymphoma. 14. Pleural effusion with thoracentesis. 15. Pulmonary hypertension. 16. Fracture of the right wrist. 17. Anemia. 18. Arthritis, bilateral hands. 19. Hiatal hernia. 20. Gastritis. 21. Back pain. 22. Chronic sinusitis. 23. Pacemaker. 24. Thoracentesis. 25. Partial thyroidectomy. 26. Mediastinoscopy. 27. Right axillary biopsy. 28. Bilateral cataract removal. 29. Pilonidal cyst removal. 30. Cerebral thrombectomy. 31. GERD with biopsy. 32. D&C. 33. Permanent pacemaker. MEDICATIONS: 1. Lanoxin. 2. Synthroid. 3. Lovaza. 4. Zocor. 5. Multivitamins. 6. Coumadin. 7. Lasix. 8. Lopressor. 9. K-Dur. 10. Prednisone. 11. Januvia. 12. Omeprazole. PHYSICAL EXAM: Vital signs stable. Afebrile. CARDIOVASCULAR: S1, S2. Lungs show wheezes and rhonchi x4. Decreased breath sounds. MUSCULOSKELETAL: She has tenderness to palpation around the mid thoracic area right over the spinal process. HEMATOLOGIC: Negative Karin's. VASCULAR: Normal dorsalis pedis, posterior tibial, radial pulses. OPHTHALMOLOGIC: Pupils equal, round, reactive to light and accommodation. Labs show hemoglobin 11.1. BNP over 3000. INR 5.7, now down to 1.8. Hemoglobin is 10.8. Protein is low at 6. ASSESSMENT: 1. Thoracic compression fracture. Patient will need a TLSO brace versus vertebroplasty. 2. Acute on chronic congestive heart failure. 3. Elevated INR secondary to Coumadin usage. 4. History of atrial fibrillation. PLAN: Will get a TLSO brace for the patient today with cardiology intervention. Vitamin K for elevated INR. Will follow along in the next 24 to 48 hours. Prognosis extremely guarded. She has a history of non-Hodgkin's lymphoma, which is currently in remission, and now she has congestive heart failure, it looks like, with elevated BNP. MTDD
[2017-01-04] MEDS ORDERED: WARFARIN 5 MG TAB PO SCH (18:00)
== END 2017-01-04 17:01 | disposition home or self-care (01) ==
LOC: 4MS4W 13:10
PROVIDERS: ADMIT Family Medicine; ATTEND Family Medicine
DX: S22.058A Other fracture of T5-T6 vertebra, initial encounter for closed fracture (principal); S22.078A Other fracture of T9-T10 vertebra, initial encounter for closed fracture; S22.068A Other fracture of T7-T8 thoracic vertebra, initial encounter for closed fracture; S62.101A Fracture of unspecified carpal bone, right wrist, initial encounter for closed fracture; S22.31XA Fracture of one rib, right side, initial encounter for closed fracture; I08.1 Rheumatic disorders of both mitral and tricuspid valves; W19.XXXA Unspecified fall, initial encounter; Z79.01 Long term (current) use of anticoagulants; N39.0 Urinary tract infection, site not specified; E86.0 Dehydration; I11.0 Hypertensive heart disease with heart failure; I50.9 Heart failure, unspecified; E11.9 Type 2 diabetes mellitus without complications; Z86.73 Personal history of transient ischemic attack (TIA), and cerebral infarction without residual deficits; K21.9 Gastro-esophageal reflux disease without esophagitis; J44.9 Chronic obstructive pulmonary disease, unspecified; I48.1 Persistent atrial fibrillation; E78.5 Hyperlipidemia, unspecified; Z85.72 Personal history of non-Hodgkin lymphomas; M19.041 Primary osteoarthritis, right hand; M19.042 Primary osteoarthritis, left hand; I27.2 Other secondary pulmonary hypertension; E03.9 Hypothyroidism, unspecified; K44.9 Diaphragmatic hernia without obstruction or gangrene; G89.29 Other chronic pain; D64.9 Anemia, unspecified; Z82.49 Family history of ischemic heart disease and other diseases of the circulatory system; Z87.891 Personal history of nicotine dependence; Z79.899 Other long term (current) drug therapy; Z79.84 Long term (current) use of oral hypoglycemic drugs; Z79.52 Long term (current) use of systemic steroids; Z95.0 Presence of cardiac pacemaker
CPT/HCPCS: 93306; 93005; 83880; 80053 ×3; 84443; 83036; 85025 ×3; 85610 ×3; 85730 ×2; 81003; 87086; 71020; 72128; G0379; G0378 ×3; J7512

== ENCOUNTER → 2017-03-27 | Outpatient (CLI) | payer MEDICARE ==
[2017-03-27 13:28] LABS: Blood Urea Nitrogen 15 mg/dL (7-17); Non-African American GFR(MDRD) 50 (>60 ml/min/1.73 sqM)
--- NOTE | 2017-03-27 14:57 | CT ---
EXAMINATION TYPE: CT ChestAbdPelvis w con DATE OF EXAM: 03/27/2017 COMPARISON: 11/08/2016 HISTORY: Follow up to lymphoma CT DLP: 570.3 mGycm CONTRAST: CT scan of the chest, abdomen and pelvis is performed with Oral Contrast and with IV Contrast, patien t injected with 50 mL of Visipaque 320. CT Chest: LUNGS: Small bilateral pleural effusions with mild interstitial edema. No evidence for focal infiltra te. Upper lobe emphysematous changes seen. MEDIASTINUM: There is evidence of cardiomegaly. Thoracic aorta is of normal caliber. No evidence for mediastinal mass or adenopathy. HILAR STRUCTURES: No evidence for mass. No hilar adenopathy is appreciated. OTHER: No significant abnormality. CONTRAST CT ABDOMEN AND PELVIS FINDINGS: LIVER/GB: No calcified gallstones. No space occupying hepatic lesion. Biliary tree is of normal ca liber. PANCREAS: No inflammation. No distinct mass. SPLEEN: No splenic enlargement. No lesion seen. ADRENALS: No nodule. No thickening. Focal calcification right adrenal gland. KIDNEYS/BLADDER: No hydronephrosis. No nephrolithiasis. Renal parenchymal thinning left kidney. BOWEL: Normal appendix. Normal bowel caliber. No inflammation. GENITAL ORGANS: No gross abnormality. LYMPH NODES: No greater than 1cm abdominal or pelvic lymph nodes are appreciated. AORTA: Infrarenal abdominal aortic aneurysm stable at 4.1 cm AP dimension. OSSEOUS STRUCTURES: No significant abnormality is seen. OTHER: No significant additional abnormality is seen. IMPRESSION: 1. No evidence for adenopathy within the chest abdomen or pelvis. 2. Findings felt to reflect mild congestive failure with interstitial edema and small effusions noted . Correlate clinically. 3. Abdominal aortic aneurysm.
== END | disposition home or self-care (01) ==
LOC: RADCTMAIN 12:50
PROVIDERS: ATTEND Internal Medicine Hematology & Oncology
DX: I71.4 Abdominal aortic aneurysm, without rupture (principal); C83.38 Diffuse large B-cell lymphoma, lymph nodes of multiple sites
CPT/HCPCS: 82565; 84520; 71260; 74177; 36415; Q9967

== ENCOUNTER → 2017-09-21 | Outpatient (CLI) | payer MEDICARE ==
--- NOTE | 2017-09-21 13:18 | CT ---
EXAMINATION TYPE: CT ChestAbdPelvis w con DATE OF EXAM: 09/21/2017 INDICATION: Patient has no complaints at time of study. Follow up study for known lymphoma. COMPARISON: NONE CT DLP: 1152 mGycm CONTRAST: Performed with Oral Contrast and with IV Contrast, patient injected with 80 mL of Isovue 300. TECHNIQUE: Axial images at 5 mm thick sections. Reconstructed images in the coronal plane. Delayed images through the kidneys. FINDINGS: CT CHEST: Portion of the thyroid visualized is normal. Thoracic kyphosis is present. Small left pleural effusion is present. There appear to be some emphysematous changes on lung windows . No enlarged mediastinal or hilar adenopathy is evident. The ascending aorta diameter at the level of the main pulmonary artery is 3.0 cm. The main pulmonary artery diameter at the bifurcation is 2.[address] ABDOMEN: Liver: Normal Spleen: Normal Pancreas: Atrophic Adrenal glands: The adrenal glands are normal. Gallbladder: Normal Kidneys: No masses are evident. No hydronephrosis is present. No cysts are present. Delayed images were obtained through the kidneys, which remain unremarkable. Aorta: Vascular calcification is within the aorta. There is an abdominal aortic aneurysm measuring 4 .5 cm in greatest AP dimension. This terminates at the bifurcation and begins below the level of the renal arteries. Inferior vena cava: Normal. CT PELVIS: Loops of bowel within the abdomen and pelvis are normal. There are loops of bowel which are incom pletely distended or lack oral contrast limiting their evaluation. Appendix: Normal as visualized. Urinary bladder: Normal. Genitourinary structures: Uterus is unremarkable. Adnexal regions are normal Osseous structures: No suspicious lytic or sclerotic lesions. Facet degenerative changes are in the l ower lumbar spine. IMPRESSIONS: 1. Abdominal aortic aneurysm with an AP dimension of 4.5 cm. This is increased from 4.1 cm of 017.
== END | disposition home or self-care (01) ==
LOC: RADCTMAIN 10:19
PROVIDERS: ATTEND Internal Medicine Hematology & Oncology
DX: C83.38 Diffuse large B-cell lymphoma, lymph nodes of multiple sites (principal); I71.4 Abdominal aortic aneurysm, without rupture
CPT/HCPCS: 82565; 84520; 71260; 74177; 36415; Q9967

== ENCOUNTER → 2018-03-19 | Outpatient (CLI) | payer MEDICARE ==
--- NOTE | 2018-03-19 13:40 | CT ---
EXAMINATION TYPE: CT ChestAbdPelvis wo con DATE OF EXAM: 03/19/2018 COMPARISON: 09/21/2017 HISTORY: Lymphoma CT DLP: 310.3 mGycm. Automated Exposure Control for Dose Reduction was Utilized. TECHNIQUE: CT scan of the thorax, abdomen and pelvis is performed without IV contrast. FINDINGS: LUNGS: Emphysematous changes are noted and there is interlobular septal thickening compatible chronic interstitial lung disease. Tiny without bilateral pleural effusion greater on the left with subsegme ntal consolidation likely in the basis of atelectasis. Localized area of linear density in the right upper lobe laterally likely is related to scar. Multiple subpleural and right upper lobe parenchymal less than 5 mm pulmonary nodule stable. MEDIASTINUM: Lack of contrast limits assessment for adenopathy. No pathologic adenopathy in the axill a. Shotty adenopathy supraclavicular region. Shotty adenopathy mediastinum. There are no greater than 1 cm hilar or mediastinal lymph nodes. No pericardial effusion is seen. Heart is enlarged and the re is a cardiac lead. Dense coronary artery calcification noted. OTHER: No additional significant abnormality is seen. LIVER/GB: No significant abnormality is appreciated. PANCREAS: No significant abnormality is seen. SPLEEN: No significant abnormality is seen. ADRENALS: Calcification the region of the right adrenal gland is stable. Left adrenal gland thickenin g is stable. KIDNEYS: No significant abnormality is seen. BOWEL: No significant abnormality is seen. LYMPH NODES: No greater than 1cm abdominal or pelvic lymph nodes are appreciated. OSSEOUS STRUCTURES: Hypertrophic and degenerative changes of the vertebral column with multilevel fac et arthropathy. Arthropathy of the hip joints. OTHER: There is interval increase in size of the aortic aneurysm which measures 4.9 x 4.9 cm and prev iously measured 4.5 cm in greatest axis. Eccentric calcification intraluminally is stable. This appea rs situated within the soft plaque or thrombus on the prior exam. Calcification in the region of the right adrenal gland also is stable and. IMPRESSION: 1. No evidence of pathologic adenopathy. 2. Interval increase in size of a infrarenal abdominal aortic aneurysm now measuring 4.[address] axis and previously measuring 4.5 cm in greatest axis. 3. Tiny bilateral pleural effusions greater on the left appears stable.
== END | disposition home or self-care (01) ==
LOC: RADCTMAIN 11:17
PROVIDERS: ATTEND Internal Medicine Hematology & Oncology
DX: C83.38 Diffuse large B-cell lymphoma, lymph nodes of multiple sites (principal); I71.4 Abdominal aortic aneurysm, without rupture; J90 Pleural effusion, not elsewhere classified; R94.4 Abnormal results of kidney function studies
CPT/HCPCS: 36415; 71250; 74176; 82565; 84520